=== PATIENT | female | born 1970 | race Caucasian/White ===

== ENCOUNTER 2018-05-25 21:25 | Inpatient (IN) | payer BC, OTHER, SELFPAY ==
[~2018-05-25] VITALS: Ht 165.1 cm; Wt 75.8 kg
[2018-05-25 21:25] VITALS: BP 125/63
[2018-05-25] MEDS ORDERED: SOLU-MEDROL IV STA (21:35)
[2018-05-25] MEDS ORDERED: MAGNESIUM SULFATE 50 ML IV STA (21:37)
[2018-05-25 21:58] LABS: BASOPHIL # 0.1 10^3/uL (0.0-0.1); BASOPHIL % 0.4 % (0.0-0.2); EOSINOPHIL # 0.2 10^3/uL (0.0-0.2); EOSINOPHIL % 1.4 % (0.0-5.0); HEMOGLOBIN 15.2 g/dL (12.0-15.0); LYMPHOCYTES # 7.6 10^3/uL (1.0-4.8); LYMPHOCYTES % 46.6 % (24.0-44.0); MEAN CELL HGB 31.6 pg (26-34); MEAN CELL HGB CONCENTRATION 35.2 g/dL (33-37); MEAN CORP VOLUME 89.8 fL (78-100); MEAN PLATELET VOLUME 10.1 fL (7.8-11.0); MONOCYTES # 1.2 10^3/uL (0.3-0.8); MONOCYTES % 7.1 % (5.0-12.0); NEUTROPHIL # 7.2 10^3/uL (1.8-7.7); NEUTROPHILS % 44.1 % (41.0-85.0); RED CELL DISTRIBUTION WIDTH 14.3 % (11.5-14.5); WHITE BLOOD CELL 16.3 10^3/uL (4.5-11.0)
[2018-05-25] MEDS ORDERED: DUONEB 0.5 MG-3 MG/3 ML SOLN IH ONE (22:01)
[2018-05-25] MEDS ORDERED: XOPENEX IH ONE (22:01)
[2018-05-25] MEDS ORDERED: DUONEB 0.5 MG-3 MG/3 ML SOLN IH STA (22:05)
[2018-05-25] MEDS ORDERED: XOPENEX IH STA (22:05)
[2018-05-25 22:06] VITALS: BP 129/78
--- NOTE | 2018-05-25 22:06 | DIREP ---
PROCEDURE:CHEST 1 VIEW COMPARISON:[facility], CR, XRAY CHEST 2 VWS, 12/12/2017, 03:11 PM. INDICATIONS:SOB FINDINGS: LUNGS/PLEURA:No significant pulmonary parenchymal abnormalities. No effusions. VASCULATURE:Normal. Unremarkable pulmonary vasculature. CARDIAC:Normal. No cardiac silhouette abnormality or cardiomegaly. MEDIASTINUM:Normal. No visible mass or adenopathy. BONES:Normal. No fracture or visible bony lesion. OTHER:Negative. CONCLUSION:Normal, no change from the prior exam. Dictated by: Rip Espinosa M.D. on 05/25/2018 at 10:05 PM
--- NOTE | 2018-05-25 22:11 | ER.PDOC ---
General Chief Complaint: Requesting Medical Care Stated Complaint: DYSPNEA Time seen by MD: 22:08 Source: patient Exam Limitations: no limitations History of Present Illness Initial Comments Difficulty breathing and wheezing Timing/Duration: 1 hour Severity: severe Activities at Onset: rest Prior Episodes/Possible Cause: occasional episodes Modifying Factors: improves with albuterol nebulizer Associated Symptoms: wheezing Prior symptoms/Treatment: Similar symptoms previous Allergies: Coded Allergies: sulfacetamide sodium (Verified Allergy, Intermediate, Rash, 02/26/13) aspirin (Verified Allergy, Unknown, 05/25/18) NOSE BLEEDS Past Medical History Medical History: asthma Surgical History: appendectomy, cholecystectomy, hysterectomy Review of Systems Constitutional: no symptoms reported EENTM: no symptoms reported Respiratory: see HPI Cardiovascular: no symptoms reported Gastrointestinal: no symptoms reported All Other Systems: Reviewed and Negative Physical Exam General Appearance: Severe Distress Neck: Non-Tender, Full Range of Motion, Supple, Normal Inspection Respiratory: respiratory distress, accessory muscle use, wheezing, expiration Cardiovascular: Normal Peripheral Pulses, Regular Rate, Rhythm, No Edema, No Gallop, No JVD, No Murmur Gastrointestinal: Normal Bowel Sounds, No Organomegaly, No Pulsatile Mass, Non Tender, Soft Extremities: Normal Range of Motion, Non-Tender, Normal Inspection, No Pedal Edema, No Calf Tenderness, Normal Capillary Refill Neurologic/Psychiatric: director specialty II-XII NML as Tested, No Motor/Sensory Deficits, Alert, Normal Mood/Affect, Oriented x 3 Skin: Normal Color, Warm/Dry Results/Orders Results/Orders Orders - ROSE LARSON MD Arterial Blood Gas (05/25/18 21:35) Cbc With Auto Diff (05/25/18 21:35) Comprehensive Metabolic Panel (05/25/18 21:35) Creatine Kinase (05/25/18 21:35) Probnp B-Type Metallurgist Helper (05/25/18 21:35) Troponin I (05/25/18 21:35) D-Dimer (05/25/18 21:35) Ekg-Routine (05/25/18 21:35) Xr Chest 1v (05/25/18 21:35) Methylprednisolone Sod Succ (Solu-Medrol (05/25/18 21:35) Magnesium 2 Gm/Water 50ml (Magnesium Sul (05/25/18 21:37) Ipratropium/Albuterol Sulfate (Duoneb 0. (05/25/18 22:01) Levalbuterol Hcl (Xopenex) (05/25/18 22:01) Levalbuterol Hcl (Xopenex) (05/25/18 22:05) Ipratropium/Albuterol Sulfate (Duoneb 0. (05/25/18 22:05) Blood Culture (05/25/18 22:06) Vital Signs Date Time Temp Pulse Resp B/P (MAP) Pulse Ox O2 Delivery O2 Flow Rate FiO2 05/25/18 22:12 98 28 92 05/25/18 22:00 98 28 92 05/25/18 21:40 127 42 97 Administered Medications Medications (Trade) Dose Ordered Sig/Anastasia Route PRN Reason Start Time Stop Time Status Last Admin Dose Admin Albuterol/ Ipratropium (Duoneb 0.5 Mg-3 Mg/3 ml Soln) 3 ml STAT STAT IH 05/25/18 22:05 05/25/18 22:06 DC 05/25/18 22:11 3 ML Levalbuterol HCl (Xopenex) 1.25 mg STAT STAT IH 05/25/18 22:05 05/25/18 22:06 DC 05/25/18 22:11 1.25 MG Magnesium Sulfate 50 ml @ 50 mls/hr STAT STAT IV 05/25/18 21:37 05/25/18 22:36 DC 05/25/18 21:45 50 MLS/HR Methylprednisolone Sodium Succinate (Solu-Medrol) 125 mg STAT STAT IV 05/25/18 21:35 05/25/18 21:36 DC 05/25/18 21:40 125 MG Laboratory Tests Test 05/25/18 21:46 White Blood Count 16.3 10^3/uL (4.5-11.0) H Red Blood Count 4.81 10^6/uL (4.00-5.20) Hemoglobin 15.2 g/dL (12.0-15.0) H Hematocrit 43.2 % (36.0-46.0) Mean Corpuscular Volume 89.8 fL (78-100) Mean Corpuscular Hemoglobin 31.6 pg (26-34) Mean Corpuscular Hemoglobin Concent 35.2 g/dL (33-37) Red Cell Distribution Width 14.3 % (11.5-14.5) Platelet Count 397 10^3/uL (150-400) Mean Platelet Volume 10.1 fL (7.8-11.0) Neutrophils (%) (Auto) 44.1 % (41.0-85.0) Lymphocytes (%) (Auto) 46.6 % (24.0-44.0) H Monocytes (%) (Auto) 7.1 % (5.0-12.0) Neutrophils # (Auto) 7.2 10^3/uL (1.8-7.7) Lymphocytes # (Auto) 7.6 10^3/uL (1.0-4.8) H Monocytes # (Auto) 1.2 10^3/uL (0.3-0.8) H Absolute Immature Granulocyte (auto 0.07 10^3 u/L (0-2) Eosinophils % 1.4 % (0.0-5.0) Basophils % 0.4 % (0.0-0.2) H Basophils # 0.1 10^3/uL (0.0-0.1) Eosinophil Count 0.2 10^3/uL (0.0-0.2) D-Dimer 0.93 mg/L (0.19-0.49) *H Sodium Level 136 mmol/L (132-145) Potassium Level 3.8 mmol/L (3.6-5.2) Chloride Level 101.0 mmol/L (96-109) Carbon Dioxide Level 20.3 mmol/L (20.0-32) Anion Gap 18.5 Blood Urea Nitrogen 14 mg/dL (7-18) Creatinine 1.19 mg/dL (0.59-1.40) Estimated GFR () 58.3 (>/=60) BUN/Creatinine Ratio 11.0 Glucose Level 176 mg/dL (70-110) H Calcium Level 8.8 mg/dL (8.4-10.5) Total Bilirubin 0.4 mg/dL (0.2-1.0) Aspartate Amino Transferase (AST) 47 U/L (0-35) H Alanine Aminotransferase (ALT) 44 U/L (12-78) Alkaline Phosphatase 78 U/L (50-136) Total Creatine Kinase 221 U/L (26-192) H Troponin I 0.06 ng/mL (0.00-0.05) H Pro-B-Type Natriuretic Peptide 71 pg/mL (0-125) Total Protein 7.5 g/dL (6.4-8.2) Albumin 3.8 g/dL (3.4-5.0) Globulin 3.7 Percent Immature Gran (Cell Imm) 0.40 % (0.00-0.50) EKG/XRAY/CT/US EKG: NSR XRAY: chest (No active disease) Departure Time of Disposition: 22:54 Disposition: 09 ADMITTED INPATIENT Impression: Primary Impression: Respiratory distress Additional Impression: Asthma exacerbation Condition: Stable Referrals: [facility] (PCP) PRIMARY CARE PROVIDER Comments Admitted to Dr. Banerjee Duration or Time Spent with Pa: 60 mins Critical Care Note Total Time (mins): 60 Problem Qualifiers Additional Impression: Asthma exacerbation Asthma severity: mild Asthma persistence: intermittent Qualified Codes: J45.21 - Mild intermittent asthma with (acute) exacerbation ROSE LARSON MD May 25, 2018 22:11
--- NOTE | 2018-05-25 22:20 | PCM.EKG ---
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
[2018-05-25 22:21] VITALS: BP 113/78
[2018-05-25 22:23] LABS: CALCIUM 8.8 mg/dL (8.4-10.5); CARBON DIOXIDE 20.3 mmol/L (20.0-32)
[2018-05-25] MEDS ORDERED: NS 1000ML 1,000 ML IV STA (22:55)
[2018-05-25 23:00] LABS: ABG PCO2 35.7 mmHg (35.0-45.0); ABG PH 7.277 (7.350-7.450); BE(B) -9.5 mmol/L (-2.0-2.0); HCO3act 16.3 mmol/L (22.0-26.0); pO2 100.4 mmHg (75.0-100.0)
[2018-05-25] MEDS ORDERED: D5W-1/2 NS/KCL 20MEQ 1,000 ML IV ONE (23:00)
[2018-05-25 23:07] VITALS: BP 122/54
[2018-05-25] MEDS ORDERED: NS 1000ML 1,000 ML ONE (23:22)
[2018-05-25 23:36] VITALS: BP 105/64
[2018-05-26] MEDS ORDERED: DUONEB 0.5 MG-3 MG/3 ML SOLN IH SCH
[2018-05-26] MEDS: DUONEB 0.5 MG-3 MG/3 ML SOLN IH SCH ×6 (00:26→20:30)
[2018-05-26 03:06] VITALS: BP 107/70
[2018-05-26 05:25] VITALS: BP 114/78
[2018-05-26] MEDS: SOLU-MEDROL IV SCH ×3 (05:48→18:04)
--- NOTE | 2018-05-26 07:44 | PCM.EKG ---
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
[2018-05-26 07:50] VITALS: BP_SYST 117; BP_SYST 123; BP_DIAS 50; BP_DIAS 88
[2018-05-26] MEDS: TYLENOL PO PRN ×2 (08:26→19:12)
[2018-05-26 13:50] VITALS: BP 139/93
[2018-05-26] MEDS: ATIVAN IV PRN (13:53)
--- NOTE | 2018-05-26 14:18 | PCM.HP ---
HISTORY & PHYSICAL HISTORY & PHYSICAL DATE OF ADMISSION: CHIEF COMPLAINT: 48 yo female with HTN and asthma comes in with 1 day of SOB and respiratory arrest. Family performed chest compression last night reportedly. Pt. required CPAP on admission for severe hypoxia. SIRS and metabolic acidosis present on admission. Admit for IV Corticosteroids and tele monitoring. Check CTA of chest. Continue to trend Troponins. Echo. H&P # [id number] HISTORY OF PRESENT ILLNESS: ALLERGIES: CURRENT MEDICATIONS: PAST MEDICAL HISTORY: SOCIAL HISTORY: FAMILY HISTORY: REVIEW OF SYSTEMS: PHYSICAL EXAMINATION: GENERAL: VITAL SIGNS: HEENT: NECK: LUNGS: HEART: ABDOMEN: EXTREMITIES: NEUROLOGIC: LABORATORY DATA: IMPRESSION: CARE PLAN: JOSSIE KRISHNA MD May 26, 2018 14:18
[2018-05-26] MEDS ORDERED: ROCEPHIN 1,000 MG in NS 100ML 100 ML IV SCH (14:30)
[2018-05-26] MEDS ORDERED: NS 100ML 100 ML IV ONE (14:43)
[2018-05-26] MEDS ORDERED: ROCEPHIN ONE (14:43)
--- NOTE | 2018-05-26 16:04 | DIREP ---
PROCEDURE:CT PULMONARY ANGIOGRAM TECHNIQUE:Following the intravenous administration of contrast material, axial cuts were obtained through the chest. Sagittal, coronal, and pulmonary artery MIP post-processing reconstructions are provided. Satisfactory pulmonary arterial contrast opacification was achieved. The images were viewed at lung and soft tissue settings. COMPARISON:[facility], CR, XRAY CHEST SINGLE VW, 05/25/2018, 09:51 PM. INDICATIONS:sob FINDINGS: PULMONARY ARTERIES:Patent. LUNGS:Bilateral dependent atelectasis. Mild patchy bilateral infiltrates, differential includes pneumonia, edema versus atelectasis. Mild emphysema in the apices. CARDIAC:Normal size heart and normal pulmonary vascularity. THYROID:Normal. THORACIC AORTA:Normal. MEDIASTINUM:Prominent right suprahilar lymph node measures 19 x 18 mm. PLEURA:Small bilateral pleural effusions. BONES:Normal. OTHER:No additional findings. CONCLUSION: 1. Negative for pulmonary embolism. Two. Aorta within normal limits. 3. Patchy bilateral hazy opacities, differential includes pneumonia, edema versus atelectasis. Three. Small bilateral pleural effusions and trace atelectasis. 4. Mildly enlarged right suprahilar lymph node, may be reactive. The possibility of metastasis is in the differential. Dictated by: Michael Ordoñez M.D. on 05/26/2018 at 03:57 PM
[2018-05-26] MEDS: NS 1000ML 1,000 ML IV SCH (16:25)
--- NOTE | 2018-05-26 16:27 | HPH ---
ADMIT DATE: 05/26/2018 CHIEF COMPLAINT: Shortness of breath and possible respiratory arrest. HISTORY OF PRESENT ILLNESS: This is a 48-year-old female with a past medical history significant for asthma, who presented to the Emergency Department late last night after an episode of shortness of breath and possible respiratory arrest. Apparently, the patient was at the movie theater here in [place] with her family and after the movie she started having sudden onset of shortness of breath and wheezing. The patient states she could not get air and began to panic at that time. She does not remember anything further and the family states that her breathing became much more shallow and at one point they could not tell if she was breathing at all. At that time, her daughter also checked her pulse and states her pulse was very weak and her daughter started CPR at that time. Her daughter has had a first aid course and states she did 3 courses of CPR and rescue breathing and when EMS arrived, the patient was breathing a little bit, but that EMS also performed the Heimlich maneuver. They state that EMS did not perform any other type of resuscitative efforts. The patient was stable in the Emergency Department, although she was having some continued difficulty with breathing. She was placed on CPAP intermittently for her oxygen. She states she feels much better today and is breathing easier. She is still not back to baseline and is still short of breath without the oxygen, but states that it is much improved from last night and she is no longer needing CPAP. PAST MEDICAL HISTORY 1. Asthma. 2. Hypertension. 3. Osteoarthritis. 4. Generalized anxiety. MEDICATIONS: See admit medication reconciliation form. ALLERGIES: ASPIRIN and SULFA. PAST SURGICAL HISTORY: 1. Appendectomy. 2. Cholecystectomy. 3. Hysterectomy. FAMILY HISTORY: Reviewed. REVIEW OF SYSTEMS: GENERAL: Overall positive for weakness and fatigue over the last 24 hours. CARDIAC: She is having some chest wall pain today, likely from CPR. Otherwise, has not had chest pain, orthopnea or PND. RESPIRATORY: Positive for shortness of breath, cough and congestion as above. Symptoms only started over the last 24 hours, however. GASTROINTESTINAL: No nausea, vomiting, diarrhea or constipation. No history of hepatitis. GENITOURINARY: Denies dysuria, frequency, hematuria or nocturia. HEMATOLOGIC: No easy bleeding or bruising. ENDOCRINE: No recent weight loss or weight gain. No temperature intolerance. NEUROLOGIC: Denies headache, paresthesias or dizziness. MUSCULOSKELETAL: Recent sprain of the right ankle. PSYCHIATRIC: Positive for significant anxiety. Denies depression. DERMATOLOGIC: Denies rashes or skin lesions. PHYSICAL EXAMINATION: VITAL SIGNS: Temperature 96.1, pulse 122, respirations 40, blood pressure 125/63, oxygen saturation 96% on CPAP. GENERAL: This is a well-appearing female, in no acute distress. She is mildly tremulous from anxiety and breathing treatments. HEENT: Atraumatic, normocephalic. Sclerae are clear and anicteric. Oral mucosa is moist. NECK: Soft, supple, normal range of motion. No bruits, goiter, mass or adenopathy. There is no JVD. LUNGS: Decreased breath sounds bilaterally with mild wheezing throughout both lung lew. HEART: Regular rate and rhythm without murmurs, S3 or S4. ABDOMEN: Soft, nontender, nondistended. Positive bowel sounds. No masses felt. EXTREMITIES: Warm and well perfused without evidence of edema, cyanosis or clubbing. NEUROLOGIC: Cranial nerves 2-12 are grossly intact and symmetric. SKIN: Intact. LABORATORY DATA: WBC 16.3, hemoglobin 15.2, platelets 397. The pH of 7.27, pCO2 of 35.7, pO2 of 100.4, bicarbonate 16.3, lactate 4.3. Sodium 136, potassium 3.8, chloride 101, CO2 of 20.3, BUN 14, creatinine 1.19, glucose 176, calcium 8.8, AST 47, ALT 44, total CK 221. Troponin I of 0.06. Chest x-ray --"normal, no change from the prior exam." IMPRESSION: 1. Shortness of breath. 2. Possible respiratory arrest. 3. Asthma exacerbation. 4. Systemic inflammatory response syndrome. 5. Lactic metabolic acidosis. 6. Leukocytosis. 7. Elevated troponin. 8. Generalized anxiety. 9. Chronic tobacco use. 10. Chronic alcohol use. PLAN: 1. The patient is admitted to [facility], where we will continue to closely monitor vital signs and oxygen levels. 2. The patient will be on IV corticosteroids for reactive airway disease. We will also place on empiric antibiotics over the next 24 hours for SIRS. 3. The patient did have an elevated D-dimer on admission, but I do not see any record of a CTA being done in the Emergency Department. She does have a history of this ankle fracture and DVT is possible. She does have tachycardia and hypoxia, thus we will order a CTA of the chest since one has not been done. 4. Elevated troponin could very likely be from chest compressions that were done by family last night. The patient has no other known cardiac history. Her EKG looks good without any signs of significant abnormalities. I am going to check her troponin until it starts to trend down and we will also order an echocardiogram. Consider Cardiology consult. 5. We will give lorazepam for anxiety. 6. Nicotine patch for nicotine dependence. 7. I told the patient to contact me if she has any signs or symptoms of tremor because alcohol withdrawal is still a possibility. 8. Continue DuoNeb treatments q.i.d. Ish Banerjee MD DR: THANG/savannah JOB# [id number]
[2018-05-26 16:35] VITALS: BP 138/84
[2018-05-26 19:33] VITALS: BP 126/85
[2018-05-26] MEDS ORDERED: MOTRIN PO ONE (21:30)
[2018-05-26] MEDS ORDERED: MOTRIN ONE (21:31)
[2018-05-27] VITALS (7 sets, daily range): BP systolic 115–131; BP diastolic 60–78
[2018-05-27] MEDS: SOLU-MEDROL IV SCH ×4 (00:28→18:00)
[2018-05-27] MEDS: DUONEB 0.5 MG-3 MG/3 ML SOLN IH SCH ×6 (00:45→20:42)
[2018-05-27] MEDS: ATIVAN IV PRN (01:33)
[2018-05-27] MEDS: NS 1000ML 1,000 ML IV SCH ×2 (05:34→20:03)
[2018-05-27 05:50] LABS: HEMOGLOBIN 13.3 g/dL (12.0-15.0); MEAN CELL HGB 31.4 pg (26-34); MEAN CELL HGB CONCENTRATION 34.3 g/dL (33-37); MEAN CORP VOLUME 91.5 fL (78-100); RED CELL DISTRIBUTION WIDTH 14.9 % (11.5-14.5); WHITE BLOOD CELL 18.9 10^3/uL (4.5-11.0)
[2018-05-27 06:18] LABS: CALCIUM 8.5 mg/dL (8.4-10.5); CARBON DIOXIDE 23.6 mmol/L (20.0-32)
[2018-05-27] MEDS: PROTONIX PO SCH (09:23)
[2018-05-27] MEDS: TYLENOL PO PRN ×3 (09:33→23:32)
--- NOTE | 2018-05-27 11:18 | PCM.EKG ---
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
--- NOTE | 2018-05-27 13:03 | DIREP ---
PROCEDURE:CHEST 1 VIEW COMPARISON:[facility], CT, CTA CHEST, 05/26/2018, 03:33 PM. [facility], CR, XRAY CHEST SINGLE VW, 05/25/2018, 09:51 PM. [facility], CR, XRAY CHEST 2 VWS, 12/12/2017, 03:11 PM. INDICATIONS:Eval for pneumonia vs atelectasis. FINDINGS: LUNGS/PLEURA:Small left pleural effusion. Subtle patchy opacities bilaterally. VASCULATURE:Normal. Unremarkable pulmonary vasculature. CARDIAC:Normal. No cardiac silhouette abnormality or cardiomegaly. MEDIASTINUM:Normal. No visible mass or adenopathy. BONES:Normal. No fracture or visible bony lesion. OTHER:EKG leads overlie the chest. CONCLUSION:Subtle patchy bilateral opacities and small left effusion. Pneumonia is favored. Dictated by: Michael Ordoñez M.D. on 05/27/2018 at 01:01 PM
--- NOTE | 2018-05-27 16:46 | PRM.PN ---
Subjective Subjective Date: May 27, 2018 Time: 16:39 Subjective Feeling a little better. SOB improving. Denies any chest pain. Continues to have significant anxiety. Patient History: Diabetes mellitus 32 MOTHER Hypertension 32 MOTHER 33 FATHER G8 SISTER G8 SISTER VTE VTE Risk Total Score: 1 VTE Risk Score VTE Risk: Score 0-1 = Low Risk (Aggressive mobilization; early ambulation; no VTE prophylaxis required) Score 2: Moderate Risk (Intermittent/Pneumatic Compression Device OR Lovenox/Heparin/Coumadin) Score 3-4: High Risk (Intermittent/Pneumatic Compression Device AND Lovenox/Heparin/Coumadin) Score > or =5: Highest Risk (Intermittent/Pneumatic Compression Device AND Lovenox/Heparin/Coumadin) Review of Systems Constitutional: Weakness; No: Fever, Chills, Sweats, Malaise, Other Respiratory: Shortness of breath, SOB with excertion; No: Cough, Dry, Wheezing , Hemoptysis, Pleuritic Pain, Sputum, Wheezing, Other Cardiovascular: No: Chest Pain, Palpitations, Orthopnea, Paroxysmal Noc. Dyspnea, Edema, Lt Headedness, Other Gastrointestinal: No: Nausea, Vomiting, Abdominal Pain, Diarrhea, Constipation , Melena, Hematochezia, Other Genitourinary: No Dysuria, No Frequency, No Incontinence, No Hematuria, No Retention, No Other Musculoskeletal: No: other, neck pain, shoulder pain, arm pain, back pain, hand pain, leg pain, foot pain Neurological: Weakness; No: Numbness, Incoordination, Change in speech, Confusion, Seizures, Other Allergies: Coded Allergies: sulfacetamide sodium (Verified Allergy, Intermediate, Rash, 02/26/13) aspirin (Verified Allergy, Unknown, 05/25/18) NOSE BLEEDS Objective Vitals and I/O Vital Sign - Last 24 Hours 05/26/18 05/26/18 05/26/18 05/26/18 16:47 16:48 18:15 19:33 Temp 98.0 98.0 Pulse 85 87 85 95 Resp 18 18 18 20 B/P (MAP) 126/85 (99) Pulse Ox 98 98 98 93 O2 Delivery Nasal Cannula Nasal Canula O2 Flow Rate 2.00 2.50 FiO2 28 05/26/18 05/26/18 05/26/18 05/27/18 20:31 20:39 20:59 00:45 Pulse 84 95 80 Resp 18 20 18 Pulse Ox 97 98 93 O2 Delivery Nasal Cannula O2 Flow Rate 2.50 05/27/18 05/27/18 05/27/18 05/27/18 00:48 01:37 04:11 05:02 Temp 98.3 98.0 98.3 98.0 Pulse 84 84 73 82 Resp 18 17 17 16 B/P (MAP) 115/61 (79) 120/75 (90) Pulse Ox 94 92 96 94 O2 Delivery Nasal Canula Nasal Canula O2 Flow Rate 2.50 2.50 05/27/18 05/27/18 05/27/18 05/27/18 05:09 07:25 07:25 08:27 Temp 98.3 98.3 Pulse 81 80 78 Resp 16 17 16 B/P (MAP) 116/70 (85) Pulse Ox 97 97 98 O2 Delivery Nasal Canula Nasal Cannula O2 Flow Rate 1.00 1.00 05/27/18 05/27/18 05/27/18 05/27/18 08:27 08:31 11:50 12:44 Temp 98.1 98.1 Pulse 78 84 66 85 Resp 16 16 18 18 B/P (MAP) 131/60 (83) Pulse Ox 98 98 97 98 O2 Delivery Nasal Cannula Nasal Canula O2 Flow Rate 2.00 1.00 FiO2 24 05/27/18 05/27/18 05/27/18 05/27/18 12:51 16:24 16:27 16:32 Pulse 83 83 83 81 Resp 16 16 16 16 Pulse Ox 98 96 96 97 O2 Delivery Nasal Cannula O2 Flow Rate 2.00 FiO2 28 Intake and Output 05/26/18 05/26/18 05/27/18 15:00 23:00 07:00 Intake Total 400 ml 250 ml 420 ml Output Total 900 ml 400 ml 1150 ml Balance -500 ml -150 ml -730 ml General: Alert, Oriented X3, Cooperative, No acute distress HEENT: Atraumatic, PERRLA Neck: Supple, No JVD Lungs: Clear to auscultation Heart: Regular rate, Normal S1, Normal S2, No murmurs Abdomen: Normal bowel sounds, Soft, No tenderness, No masses Extremities: No clubbing, No cyanosis, No edema, Normal pulses, No tenderness/ swelling Neuro: Normal gait, Normal speech, Strength at 5/5 X4 ext, Normal tone, Sensation intact Psych/Mental Status: Mental status NL, Mood NL All Results(Lab/Rad) Laboratory Tests Test 05/26/18 17:10 05/27/18 05:09 Total Creatine Kinase 411 U/L Troponin I 1.59 ng/mL White Blood Count 18.9 10^3/uL Red Blood Count 4.24 10^6/uL Hemoglobin 13.3 g/dL Hematocrit 38.8 % Mean Corpuscular Volume 91.5 fL Mean Corpuscular Hemoglobin 31.4 pg Mean Corpuscular Hemoglobin Concent 34.3 g/dL Red Cell Distribution Width 14.9 % Platelet Count 297 10^3/uL Mean Platelet Volume 11.0 fL Sodium Level 143 mmol/L Potassium Level 4.2 mmol/L Chloride Level 109.0 mmol/L Carbon Dioxide Level 23.6 mmol/L Anion Gap 14.6 Blood Urea Nitrogen 9 mg/dL Creatinine 0.84 mg/dL Estimated GFR () 87.2 BUN/Creatinine Ratio 10.0 Glucose Level 151 mg/dL Calcium Level 8.5 mg/dL Magnesium Level 2.3 mg/dL Total Bilirubin 0.2 mg/dL Aspartate Amino Transf (AST/SGOT) 26 U/L Alanine Aminotransferase (ALT/SGPT) 24 U/L Alkaline Phosphatase 61 U/L Total Protein 6.4 g/dL Albumin 3.4 g/dL Globulin 3.0 Thyroid Stimulating Hormone (TSH) 0.313 mIU/mL Current Medications Medications (Trade) Dose Ordered Sig/Anastasia Route PRN Reason Start Time Stop Time Status Last Admin Dose Admin Methylprednisolone Sodium Succinate (Solu-Medrol) 125 mg STAT STAT IV 05/25/18 21:35 05/25/18 21:36 DC 05/25/18 21:40 Magnesium Sulfate 50 ml @ 50 mls/hr STAT STAT IV 05/25/18 21:37 05/25/18 22:36 DC 05/25/18 21:45 Albuterol/ Ipratropium (Duoneb 0.5 Mg-3 Mg/3 ml Soln) 3 ml STK-MED ONCE IH 05/25/18 22:01 05/25/18 22:03 DC Levalbuterol HCl (Xopenex) 1.25 mg STK-MED ONCE IH 05/25/18 22:01 05/25/18 22:03 DC Levalbuterol HCl (Xopenex) 1.25 mg STAT STAT IH 05/25/18 22:05 05/25/18 22:06 DC 05/25/18 22:11 Albuterol/ Ipratropium (Duoneb 0.5 Mg-3 Mg/3 ml Soln) 3 ml STAT STAT IH 05/25/18 22:05 05/25/18 22:06 DC 05/25/18 22:11 Sodium Chloride 1,000 ml @ 1,200 mls/hr Q50M STAT IV 05/25/18 22:55 05/25/18 23:44 DC 05/25/18 21:45 Methylprednisolone Sodium Succinate (Solu-Medrol) 60 mg Q8HR IV 05/26/18 06:00 05/26/18 14:11 DC 05/26/18 13:53 Albuterol/ Ipratropium (Duoneb 0.5 Mg-3 Mg/3 ml Soln) 3 ml Q4HR IH 05/26/18 00:00 05/26/18 00:00 DC Potassium Chloride/Dextrose/ Sod Cl 1,000 ml @ 100 mls/hr Q10H ONCE IV 05/25/18 23:00 05/26/18 08:59 DC 05/25/18 23:00 Albuterol/ Ipratropium (Duoneb 0.5 Mg-3 Mg/3 ml Soln) 3 ml RTQ4 IH 05/26/18 01:00 06/25/18 00:00 05/27/18 16:24 Sodium Chloride 1,000 ml @ ud STK-MED ONCE .ROUTE 05/25/18 23:22 05/25/18 23:25 DC Acetaminophen (Tylenol) 1,000 mg Q6HR PRN PO PAIN 1 - 3 05/26/18 08:30 06/25/18 08:29 05/27/18 16:34 Lorazepam (Ativan) 1 mg Q6 PRN IV ANXIETY 05/26/18 08:30 06/25/18 08:29 05/27/18 01:33 Methylprednisolone Sodium Succinate (Solu-Medrol) 80 mg Q6 IV 05/26/18 18:00 06/25/18 17:59 05/27/18 11:56 Ceftriaxone Sodium 1000 mg/ Sodium Chloride 100 ml @ 100 mls/hr Q24HRS IV 05/26/18 14:30 05/26/18 15:14 DC 05/26/18 14:48 Pantoprazole Sodium (Protonix) 40 mg DAILY PO 05/27/18 09:00 06/26/18 08:59 05/27/18 09:23 Ceftriaxone Sodium (Rocephin) 1,000 mg STK-MED ONCE .ROUTE 05/26/18 14:43 05/26/18 14:44 DC Sodium Chloride 100 ml @ ud STK-MED ONCE IV 05/26/18 14:43 05/26/18 14:44 DC Sodium Chloride 1,000 ml @ 70 mls/hr [id number] IV 05/26/18 16:00 06/25/18 15:59 05/27/18 05:34 Ibuprofen (Motrin) 600 mg OT ONCE PO 05/26/18 21:30 05/26/18 21:32 DC 05/26/18 21:34 Ibuprofen (Motrin) 200 mg STK-MED ONCE .ROUTE 05/26/18 21:31 05/26/18 21:32 DC Course Sepsis Screening Results: Posi: NEGATIVE Sepsis Qualifier/Stage: NO DEFINITE RISK Duration or Total Time Spent w: 60 mins Vitals & review Data Vital Sign - Last 24 Hours 05/26/18 05/26/18 05/26/18 05/26/18 16:47 16:48 18:15 19:33 Temp 98.0 98.0 Pulse 85 87 85 95 Resp 18 18 18 20 B/P (MAP) 126/85 (99) Pulse Ox 98 98 98 93 O2 Delivery Nasal Cannula Nasal Canula O2 Flow Rate 2.00 2.50 FiO2 28 05/26/18 05/26/18 05/26/18 05/27/18 20:31 20:39 20:59 00:45 Pulse 84 95 80 Resp 18 20 18 Pulse Ox 97 98 93 O2 Delivery Nasal Cannula O2 Flow Rate 2.50 05/27/18 05/27/18 05/27/18 05/27/18 00:48 01:37 04:11 05:02 Temp 98.3 98.0 98.3 98.0 Pulse 84 84 73 82 Resp 18 17 17 16 B/P (MAP) 115/61 (79) 120/75 (90) Pulse Ox 94 92 96 94 O2 Delivery Nasal Canula Nasal Canula O2 Flow Rate 2.50 2.50 05/27/18 05/27/18 05/27/18 05/27/18 05:09 07:25 07:25 08:27 Temp 98.3 98.3 Pulse 81 80 78 Resp 16 17 16 B/P (MAP) 116/70 (85) Pulse Ox 97 97 98 O2 Delivery Nasal Canula Nasal Cannula O2 Flow Rate 1.00 1.00 05/27/18 05/27/18 05/27/18 05/27/18 08:27 08:31 11:50 12:44 Temp 98.1 98.1 Pulse 78 84 66 85 Resp 16 16 18 18 B/P (MAP) 131/60 (83) Pulse Ox 98 98 97 98 O2 Delivery Nasal Cannula Nasal Canula O2 Flow Rate 2.00 1.00 FiO2 24 05/27/18 05/27/18 05/27/18 05/27/18 12:51 16:24 16:27 16:32 Pulse 83 83 83 81 Resp 16 16 16 16 Pulse Ox 98 96 96 97 O2 Delivery Nasal Cannula O2 Flow Rate 2.00 FiO2 28 Intake and Output 05/26/18 05/26/18 05/27/18 15:00 23:00 07:00 Intake Total 400 ml 250 ml 420 ml Output Total 900 ml 400 ml 1150 ml Balance -500 ml -150 ml -730 ml Laboratory Tests Test 05/25/18 21:45 05/25/18 21:46 05/26/18 02:39 05/26/18 05:52 Blood Gas Sample Site RT BRACIAL ARTERY VBG Blood Gas pH 7.277 Blood Gas PCO2 35.7 mmHg Blood Gas PO2 100.4 mmHg Blood Gas HCO3 16.3 mmol/L Blood Gas Base Excess -9.5 mmol/L Satish Test N/A N/A Arterial Blood Oxygen Saturation 96.4 % Deoxyhemoglobin 3.3 % Carboxyhemoglobin 7.1 % Methemoglobin 0.1 % Total Hemoglobin 15.7 % Total Oxygen Concentration 19.8 % Lactic Acid (Blood Gas) 4.3 MMOL/L 1.4 MMOL/L FiO2 100 % Bicarbonate 17.4 mmol/L White Blood Count 16.3 10^3/uL Red Blood Count 4.81 10^6/uL Hemoglobin 15.2 g/dL Hematocrit 43.2 % Mean Corpuscular Volume 89.8 fL Mean Corpuscular Hemoglobin 31.6 pg Mean Corpuscular Hemoglobin Concent 35.2 g/dL Red Cell Distribution Width 14.3 % Platelet Count 397 10^3/uL Mean Platelet Volume 10.1 fL Neutrophils (%) (Auto) 44.1 % Lymphocytes (%) (Auto) 46.6 % Monocytes (%) (Auto) 7.1 % Neutrophils # (Auto) 7.2 10^3/uL Lymphocytes # (Auto) 7.6 10^3/uL Monocytes # (Auto) 1.2 10^3/uL Absolute Immature Granulocyte (auto 0.07 10^3 u/L Eosinophils % 1.4 % Basophils % 0.4 % Basophils # 0.1 10^3/uL Eosinophil Count 0.2 10^3/uL D-Dimer 0.93 mg/L Sodium Level 136 mmol/L Potassium Level 3.8 mmol/L Chloride Level 101.0 mmol/L Carbon Dioxide Level 20.3 mmol/L Anion Gap 18.5 Blood Urea Nitrogen 14 mg/dL Creatinine 1.19 mg/dL Estimated GFR () 58.3 BUN/Creatinine Ratio 11.0 Glucose Level 176 mg/dL Calcium Level 8.8 mg/dL Total Bilirubin 0.4 mg/dL Aspartate Amino Transf (AST/SGOT) 47 U/L Alanine Aminotransferase (ALT/SGPT) 44 U/L Alkaline Phosphatase 78 U/L Total Creatine Kinase 221 U/L Troponin I 0.06 ng/mL 1.65 ng/mL Pro-B-Type Natriuretic Peptide 71 pg/mL Total Protein 7.5 g/dL Albumin 3.8 g/dL Globulin 3.7 Percent Immature Gran (Cell Imm) 0.40 % Test 05/26/18 11:35 05/26/18 17:10 05/27/18 05:09 Troponin I 2.02 ng/mL 1.59 ng/mL Total Creatine Kinase 411 U/L White Blood Count 18.9 10^3/uL Red Blood Count 4.24 10^6/uL Hemoglobin 13.3 g/dL Hematocrit 38.8 % Mean Corpuscular Volume 91.5 fL Mean Corpuscular Hemoglobin 31.4 pg Mean Corpuscular Hemoglobin Concent 34.3 g/dL Red Cell Distribution Width 14.9 % Platelet Count 297 10^3/uL Mean Platelet Volume 11.0 fL Sodium Level 143 mmol/L Potassium Level 4.2 mmol/L Chloride Level 109.0 mmol/L Carbon Dioxide Level 23.6 mmol/L Anion Gap 14.6 Blood Urea Nitrogen 9 mg/dL Creatinine 0.84 mg/dL Estimated GFR () 87.2 BUN/Creatinine Ratio 10.0 Glucose Level 151 mg/dL Calcium Level 8.5 mg/dL Magnesium Level 2.3 mg/dL Total Bilirubin 0.2 mg/dL Aspartate Amino Transf (AST/SGOT) 26 U/L Alanine Aminotransferase (ALT/SGPT) 24 U/L Alkaline Phosphatase 61 U/L Total Protein 6.4 g/dL Albumin 3.4 g/dL Globulin 3.0 Thyroid Stimulating Hormone (TSH) 0.313 mIU/mL Current Medications Medications (Trade) Dose Ordered Sig/Anastasia PRN Reason Start Time Stop Time Status Last Admin Acetaminophen (Tylenol) 1,000 mg Q6HR PRN PAIN 1 - 3 05/26/18 08:30 06/25/18 08:29 05/27/18 16:34 Albuterol/ Ipratropium (Duoneb 0.5 Mg-3 Mg/3 ml Soln) 3 ml RTQ4 05/26/18 01:00 06/25/18 00:00 05/27/18 16:24 Lorazepam (Ativan) 1 mg Q6 PRN ANXIETY 05/26/18 08:30 06/25/18 08:29 05/27/18 01:33 Methylprednisolone Sodium Succinate (Solu-Medrol) 80 mg Q6 05/26/18 18:00 06/25/18 17:59 05/27/18 11:56 Pantoprazole Sodium (Protonix) 40 mg DAILY 05/27/18 09:00 06/26/18 08:59 05/27/18 09:23 Sodium Chloride 1,000 ml @ 70 mls/hr [id number] 05/26/18 16:00 06/25/18 15:59 05/27/18 05:34 Sepsis Infection Criteria Pres: None LEVEL 2-SIRS (LIST ALL THAT AP: [id number] Cardiovascular Evidence: Not Assessed or None Hematologic Evidence: None/Not assessed Hepatic Evidence: None/Not assessed Metabolic Evidence: Lactate 2mmol> rpt in 2hr Neurological Evidence: None/Not assessed Respiratory Evidence: None/Not assessed Renal Evidence: None/Not assessed O2 Sat by Pulse Oximetry: 97 Oxygen Flow Rate: 2.00 Assessment/Plan Assessment/Plan Assessment/Plan 1.) Resp Arrest - Secondary to #2. Much improved. Continue treatment as outlined below. 2.) Asthma Exacerbation - Improved overnight. - Continue corticosteroids. - Emperic abx. - Duonebs. 3.) Elevated Troponin - May be secondary to chest compressions, however also had a WMA on Echo. - May need LHC while inpt. - Will consult Dr. Lion in AM. - Continue MARIA G, Beta Zahra and ASA. 4.) Metabolic Acidosis - Much improved. - Continue supportive management. 5.) Nicotine Dependence - Counseled on cessation. - Outpt Wellbutrin. JOSSIE KRISHNA MD May 27, 2018 16:46
[2018-05-27] MEDS: PREDNISONE PO SCH (17:00)
[2018-05-27] MEDS: ZITHROMAX PO SCH (17:00)
[2018-05-27] MEDS: ATIVAN PO PRN (17:16)
[2018-05-27] MEDS ORDERED: LIPITOR PO SCH (21:00)
[2018-05-27] MEDS: LOPRESSER PO SCH (21:14)
--- NOTE | 2018-05-27 22:58 | ECHO ---
DATE OF SERVICE: 05/26/2018 INDICATION: A 48-year-old female, elevated troponin, asthma. Assess LV function. FINDINGS: Mitral valve shows normal motion, trivial mitral regurgitation, normal aorta, normal ventricular opening, mild tricuspid regurgitation, 2.1 velocity. Right ventricular systolic pressure 27 mm. Right ventricle is normal. Right atrium is top normal size. Left atrium mildly enlarged to 4.6 cm, left ventricle is normal in size around 4.81 cm, end-diastolic dimension is 3.49 cm with and systolic dysfunction with fairly good ejection fraction on M-MODE is 53%; on 2D, mildly decreased to 45%-47% and IVC is normal. Hence mildly decreased LV systolic function with normal LV size. Septum appears to be hypokinetic compared to the posterior flores, so there is underlying coronary artery disease and the ejection fraction is 45%, probably cardiac catheterization may be advisable. Jillhand MD Mello DR: JEFF/savannah JOB# [id number]
[2018-05-28] MEDS: DUONEB 0.5 MG-3 MG/3 ML SOLN IH SCH ×4 (01:12→12:23)
[2018-05-28] MEDS: ATIVAN PO PRN (01:58)
[2018-05-28 03:41] VITALS: BP 120/65
[2018-05-28 05:28] LABS: HEMOGLOBIN 12.7 g/dL (12.0-15.0); MEAN CELL HGB 31.4 pg (26-34); MEAN CELL HGB CONCENTRATION 33.5 g/dL (33-37); MEAN CORP VOLUME 93.8 fL (78-100); MEAN PLATELET VOLUME 10.6 fL (7.8-11.0); RED CELL DISTRIBUTION WIDTH 15.3 % (11.5-14.5); WHITE BLOOD CELL 16.6 10^3/uL (4.5-11.0)
[2018-05-28 05:48] LABS: CALCIUM 8.4 mg/dL (8.4-10.5); CARBON DIOXIDE 24.3 mmol/L (20.0-32)
[2018-05-28] MEDS: NS 1000ML 1,000 ML IV SCH (06:51)
[2018-05-28 08:10] VITALS: BP 154/89
[2018-05-28] MEDS: LOPRESSER PO SCH (08:44)
[2018-05-28] MEDS: PREDNISONE PO SCH (08:52)
[2018-05-28] MEDS: ZITHROMAX PO SCH (08:52)
[2018-05-28] MEDS: PROTONIX PO SCH (08:53)
--- NOTE | 2018-05-28 08:54 | PRM.PN ---
Subjective Subjective Date: May 28, 2018 Time: 08:49 Subjective Feeling a little better. SOB continues to improve. Denies any chest pain. Continues to have significant anxiety. No overnight events. Patient History: Diabetes mellitus 32 MOTHER Hypertension 32 MOTHER 33 FATHER G8 SISTER G8 SISTER VTE VTE Risk Total Score: 1 VTE Risk Score VTE Risk: Score 0-1 = Low Risk (Aggressive mobilization; early ambulation; no VTE prophylaxis required) Score 2: Moderate Risk (Intermittent/Pneumatic Compression Device OR Lovenox/Heparin/Coumadin) Score 3-4: High Risk (Intermittent/Pneumatic Compression Device AND Lovenox/Heparin/Coumadin) Score > or =5: Highest Risk (Intermittent/Pneumatic Compression Device AND Lovenox/Heparin/Coumadin) Review of Systems Constitutional: Weakness; No: Fever, Chills, Sweats, Malaise, Other Respiratory: Shortness of breath, SOB with excertion; No: Cough, Dry, Wheezing , Hemoptysis, Pleuritic Pain, Sputum, Wheezing, Other Cardiovascular: No: Chest Pain, Palpitations, Orthopnea, Paroxysmal Noc. Dyspnea, Edema, Lt Headedness, Other Gastrointestinal: No: Nausea, Vomiting, Abdominal Pain, Diarrhea, Constipation , Melena, Hematochezia, Other Genitourinary: No Dysuria, No Frequency, No Incontinence, No Hematuria, No Retention, No Other Musculoskeletal: No: other, neck pain, shoulder pain, arm pain, back pain, hand pain, leg pain, foot pain Neurological: Weakness; No: Numbness, Incoordination, Change in speech, Confusion, Seizures, Other Allergies: Coded Allergies: sulfacetamide sodium (Verified Allergy, Intermediate, Rash, 02/26/13) aspirin (Verified Allergy, Unknown, 05/25/18) NOSE BLEEDS Objective Vitals and I/O Vital Sign - Last 24 Hours 05/26/18 05/26/18 05/26/18 05/26/18 16:47 16:48 18:15 19:33 Temp 98.0 98.0 Pulse 85 87 85 95 Resp 18 18 18 20 B/P (MAP) 126/85 (99) Pulse Ox 98 98 98 93 O2 Delivery Nasal Cannula Nasal Canula O2 Flow Rate 2.00 2.50 FiO2 28 05/26/18 05/26/18 05/26/18 05/27/18 20:31 20:39 20:59 00:45 Pulse 84 95 80 Resp 18 20 18 Pulse Ox 97 98 93 O2 Delivery Nasal Cannula O2 Flow Rate 2.50 05/27/18 05/27/18 05/27/18 05/27/18 00:48 01:37 04:11 05:02 Temp 98.3 98.0 98.3 98.0 Pulse 84 84 73 82 Resp 18 17 17 16 B/P (MAP) 115/61 (79) 120/75 (90) Pulse Ox 94 92 96 94 O2 Delivery Nasal Canula Nasal Canula O2 Flow Rate 2.50 2.50 05/27/18 05/27/18 05/27/18 05/27/18 05:09 07:25 07:25 08:27 Temp 98.3 98.3 Pulse 81 80 78 Resp 16 17 16 B/P (MAP) 116/70 (85) Pulse Ox 97 97 98 O2 Delivery Nasal Canula Nasal Cannula O2 Flow Rate 1.00 1.00 05/27/18 05/27/18 05/27/18 05/27/18 08:27 08:31 11:50 12:44 Temp 98.1 98.1 Pulse 78 84 66 85 Resp 16 16 18 18 B/P (MAP) 131/60 (83) Pulse Ox 98 98 97 98 O2 Delivery Nasal Cannula Nasal Canula O2 Flow Rate 2.00 1.00 FiO2 24 05/27/18 05/27/18 05/27/18 05/27/18 12:51 16:24 16:27 16:32 Pulse 83 83 83 81 Resp 16 16 16 16 Pulse Ox 98 96 96 97 O2 Delivery Nasal Cannula O2 Flow Rate 2.00 FiO2 28 Intake and Output 05/26/18 05/26/18 05/27/18 15:00 23:00 07:00 Intake Total 400 ml 250 ml 420 ml Output Total 900 ml 400 ml 1150 ml Balance -500 ml -150 ml -730 ml General: Alert, Oriented X3, Cooperative, No acute distress HEENT: Atraumatic, PERRLA Neck: Supple, No JVD Lungs: Clear to auscultation Heart: Regular rate, Normal S1, Normal S2, No murmurs Abdomen: Normal bowel sounds, Soft, No tenderness, No masses Extremities: No clubbing, No cyanosis, No edema, Normal pulses, No tenderness/ swelling Neuro: Normal gait, Normal speech, Strength at 5/5 X4 ext, Normal tone, Sensation intact Psych/Mental Status: Mental status NL, Mood NL All Results(Lab/Rad) Laboratory Tests Test 05/26/18 17:10 05/27/18 05:09 Total Creatine Kinase 411 U/L Troponin I 1.59 ng/mL White Blood Count 18.9 10^3/uL Red Blood Count 4.24 10^6/uL Hemoglobin 13.3 g/dL Hematocrit 38.8 % Mean Corpuscular Volume 91.5 fL Mean Corpuscular Hemoglobin 31.4 pg Mean Corpuscular Hemoglobin Concent 34.3 g/dL Red Cell Distribution Width 14.9 % Platelet Count 297 10^3/uL Mean Platelet Volume 11.0 fL Sodium Level 143 mmol/L Potassium Level 4.2 mmol/L Chloride Level 109.0 mmol/L Carbon Dioxide Level 23.6 mmol/L Anion Gap 14.6 Blood Urea Nitrogen 9 mg/dL Creatinine 0.84 mg/dL Estimated GFR () 87.2 BUN/Creatinine Ratio 10.0 Glucose Level 151 mg/dL Calcium Level 8.5 mg/dL Magnesium Level 2.3 mg/dL Total Bilirubin 0.2 mg/dL Aspartate Amino Transf (AST/SGOT) 26 U/L Alanine Aminotransferase (ALT/SGPT) 24 U/L Alkaline Phosphatase 61 U/L Total Protein 6.4 g/dL Albumin 3.4 g/dL Globulin 3.0 Thyroid Stimulating Hormone (TSH) 0.313 mIU/mL Current Medications Medications (Trade) Dose Ordered Sig/Anastasia Route PRN Reason Start Time Stop Time Status Last Admin Dose Admin Methylprednisolone Sodium Succinate (Solu-Medrol) 125 mg STAT STAT IV 05/25/18 21:35 05/25/18 21:36 DC 05/25/18 21:40 Magnesium Sulfate 50 ml @ 50 mls/hr STAT STAT IV 05/25/18 21:37 05/25/18 22:36 DC 05/25/18 21:45 Albuterol/ Ipratropium (Duoneb 0.5 Mg-3 Mg/3 ml Soln) 3 ml STK-MED ONCE IH 05/25/18 22:01 05/25/18 22:03 DC Levalbuterol HCl (Xopenex) 1.25 mg STK-MED ONCE IH 05/25/18 22:01 05/25/18 22:03 DC Levalbuterol HCl (Xopenex) 1.25 mg STAT STAT IH 05/25/18 22:05 05/25/18 22:06 DC 05/25/18 22:11 Albuterol/ Ipratropium (Duoneb 0.5 Mg-3 Mg/3 ml Soln) 3 ml STAT STAT IH 05/25/18 22:05 05/25/18 22:06 DC 05/25/18 22:11 Sodium Chloride 1,000 ml @ 1,200 mls/hr Q50M STAT IV 05/25/18 22:55 05/25/18 23:44 DC 05/25/18 21:45 Methylprednisolone Sodium Succinate (Solu-Medrol) 60 mg Q8HR IV 05/26/18 06:00 05/26/18 14:11 DC 05/26/18 13:53 Albuterol/ Ipratropium (Duoneb 0.5 Mg-3 Mg/3 ml Soln) 3 ml Q4HR IH 05/26/18 00:00 05/26/18 00:00 DC Potassium Chloride/Dextrose/ Sod Cl 1,000 ml @ 100 mls/hr Q10H ONCE IV 05/25/18 23:00 05/26/18 08:59 DC 05/25/18 23:00 Albuterol/ Ipratropium (Duoneb 0.5 Mg-3 Mg/3 ml Soln) 3 ml RTQ4 IH 05/26/18 01:00 06/25/18 00:00 05/27/18 16:24 Sodium Chloride 1,000 ml @ STK-MED ONCE .ROUTE 05/25/18 23:22 05/25/18 23:25 DC Acetaminophen (Tylenol) 1,000 mg Q6HR PRN PO PAIN 1 - 3 05/26/18 08:30 06/25/18 08:29 05/27/18 16:34 Lorazepam (Ativan) 1 mg Q6 PRN IV ANXIETY 05/26/18 08:30 06/25/18 08:29 05/27/18 01:33 Methylprednisolone Sodium Succinate (Solu-Medrol) 80 mg Q6 IV 05/26/18 18:00 06/25/18 17:59 05/27/18 11:56 Ceftriaxone Sodium 1000 mg/ Sodium Chloride 100 ml @ 100 mls/hr Q24HRS IV 05/26/18 14:30 05/26/18 15:14 DC 05/26/18 14:48 Pantoprazole Sodium (Protonix) 40 mg DAILY PO 05/27/18 09:00 06/26/18 08:59 05/27/18 09:23 Ceftriaxone Sodium (Rocephin) 1,000 mg STK-MED ONCE .ROUTE 05/26/18 14:43 05/26/18 14:44 DC Sodium Chloride 100 ml @ ud STK-MED ONCE IV 05/26/18 14:43 05/26/18 14:44 DC Sodium Chloride 1,000 ml @ 70 mls/hr [id number] IV 05/26/18 16:00 06/25/18 15:59 05/27/18 05:34 Ibuprofen (Motrin) 600 mg OT ONCE PO 05/26/18 21:30 05/26/18 21:32 DC 05/26/18 21:34 Ibuprofen (Motrin) 200 mg STK-MED ONCE .ROUTE 05/26/18 21:31 05/26/18 21:32 DC Course Sepsis Screening Results: Posi: NEGATIVE Sepsis Qualifier/Stage: NO DEFINITE RISK Duration or Total Time Spent w: 60 mins Vitals & review Data Vital Sign - Last 24 Hours 05/26/18 05/26/18 05/26/18 05/26/18 16:47 16:48 18:15 19:33 Temp 98.0 98.0 Pulse 85 87 85 95 Resp 18 18 18 20 B/P (MAP) 126/85 (99) Pulse Ox 98 98 98 93 O2 Delivery Nasal Cannula Nasal Canula O2 Flow Rate 2.00 2.50 FiO2 28 05/26/18 05/26/18 05/26/18 05/27/18 20:31 20:39 20:59 00:45 Pulse 84 95 80 Resp 18 20 18 Pulse Ox 97 98 93 O2 Delivery Nasal Cannula O2 Flow Rate 2.50 05/27/18 05/27/18 05/27/18 05/27/18 00:48 01:37 04:11 05:02 Temp 98.3 98.0 98.3 98.0 Pulse 84 84 73 82 Resp 18 17 17 16 B/P (MAP) 115/61 (79) 120/75 (90) Pulse Ox 94 92 96 94 O2 Delivery Nasal Canula Nasal Canula O2 Flow Rate 2.50 2.50 05/27/18 05/27/18 05/27/18 05/27/18 05:09 07:25 07:25 08:27 Temp 98.3 98.3 Pulse 81 80 78 Resp 16 17 16 B/P (MAP) 116/70 (85) Pulse Ox 97 97 98 O2 Delivery Nasal Canula Nasal Cannula O2 Flow Rate 1.00 1.00 05/27/18 05/27/18 05/27/18 05/27/18 08:27 08:31 11:50 12:44 Temp 98.1 98.1 Pulse 78 84 66 85 Resp 16 16 18 18 B/P (MAP) 131/60 (83) Pulse Ox 98 98 97 98 O2 Delivery Nasal Cannula Nasal Canula O2 Flow Rate 2.00 1.00 FiO2 24 05/27/18 05/27/18 05/27/18 05/27/18 12:51 16:24 16:27 16:32 Pulse 83 83 83 81 Resp 16 16 16 16 Pulse Ox 98 96 96 97 O2 Delivery Nasal Cannula O2 Flow Rate 2.00 FiO2 28 Intake and Output 05/26/18 05/26/18 05/27/18 15:00 23:00 07:00 Intake Total 400 ml 250 ml 420 ml Output Total 900 ml 400 ml 1150 ml Balance -500 ml -150 ml -730 ml Laboratory Tests Test 05/25/18 21:45 05/25/18 21:46 05/26/18 02:39 05/26/18 05:52 Blood Gas Sample Site RT BRACIAL ARTERY VBG Blood Gas pH 7.277 Blood Gas PCO2 35.7 mmHg Blood Gas PO2 100.4 mmHg Blood Gas HCO3 16.3 mmol/L Blood Gas Base Excess -9.5 mmol/L Satish Test N/A N/A Arterial Blood Oxygen Saturation 96.4 % Deoxyhemoglobin 3.3 % Carboxyhemoglobin 7.1 % Methemoglobin 0.1 % Total Hemoglobin 15.7 % Total Oxygen Concentration 19.8 % Lactic Acid (Blood Gas) 4.3 MMOL/L 1.4 MMOL/L FiO2 100 % Bicarbonate 17.4 mmol/L White Blood Count 16.3 10^3/uL Red Blood Count 4.81 10^6/uL Hemoglobin 15.2 g/dL Hematocrit 43.2 % Mean Corpuscular Volume 89.8 fL Mean Corpuscular Hemoglobin 31.6 pg Mean Corpuscular Hemoglobin Concent 35.2 g/dL Red Cell Distribution Width 14.3 % Platelet Count 397 10^3/uL Mean Platelet Volume 10.1 fL Neutrophils (%) (Auto) 44.1 % Lymphocytes (%) (Auto) 46.6 % Monocytes (%) (Auto) 7.1 % Neutrophils # (Auto) 7.2 10^3/uL Lymphocytes # (Auto) 7.6 10^3/uL Monocytes # (Auto) 1.2 10^3/uL Absolute Immature Granulocyte (auto 0.07 10^3 u/L Eosinophils % 1.4 % Basophils % 0.4 % Basophils # 0.1 10^3/uL Eosinophil Count 0.2 10^3/uL D-Dimer 0.93 mg/L Sodium Level 136 mmol/L Potassium Level 3.8 mmol/L Chloride Level 101.0 mmol/L Carbon Dioxide Level 20.3 mmol/L Anion Gap 18.5 Blood Urea Nitrogen 14 mg/dL Creatinine 1.19 mg/dL Estimated GFR () 58.3 BUN/Creatinine Ratio 11.0 Glucose Level 176 mg/dL Calcium Level 8.8 mg/dL Total Bilirubin 0.4 mg/dL Aspartate Amino Transf (AST/SGOT) 47 U/L Alanine Aminotransferase (ALT/SGPT) 44 U/L Alkaline Phosphatase 78 U/L Total Creatine Kinase 221 U/L Troponin I 0.06 ng/mL 1.65 ng/mL Pro-B-Type Natriuretic Peptide 71 pg/mL Total Protein 7.5 g/dL Albumin 3.8 g/dL Globulin 3.7 Percent Immature Gran (Cell Imm) 0.40 % Test 05/26/18 11:35 05/26/18 17:10 05/27/18 05:09 Troponin I 2.02 ng/mL 1.59 ng/mL Total Creatine Kinase 411 U/L White Blood Count 18.9 10^3/uL Red Blood Count 4.24 10^6/uL Hemoglobin 13.3 g/dL Hematocrit 38.8 % Mean Corpuscular Volume 91.5 fL Mean Corpuscular Hemoglobin 31.4 pg Mean Corpuscular Hemoglobin Concent 34.3 g/dL Red Cell Distribution Width 14.9 % Platelet Count 297 10^3/uL Mean Platelet Volume 11.0 fL Sodium Level 143 mmol/L Potassium Level 4.2 mmol/L Chloride Level 109.0 mmol/L Carbon Dioxide Level 23.6 mmol/L Anion Gap 14.6 Blood Urea Nitrogen 9 mg/dL Creatinine 0.84 mg/dL Estimated GFR () 87.2 BUN/Creatinine Ratio 10.0 Glucose Level 151 mg/dL Calcium Level 8.5 mg/dL Magnesium Level 2.3 mg/dL Total Bilirubin 0.2 mg/dL Aspartate Amino Transf (AST/SGOT) 26 U/L Alanine Aminotransferase (ALT/SGPT) 24 U/L Alkaline Phosphatase 61 U/L Total Protein 6.4 g/dL Albumin 3.4 g/dL Globulin 3.0 Thyroid Stimulating Hormone (TSH) 0.313 mIU/mL Current Medications Medications (Trade) Dose Ordered Sig/Anastasia PRN Reason Start Time Stop Time Status Last Admin Acetaminophen (Tylenol) 1,000 mg Q6HR PRN PAIN 1 - 3 05/26/18 08:30 06/25/18 08:29 05/27/18 16:34 Albuterol/ Ipratropium (Duoneb 0.5 Mg-3 Mg/3 ml Soln) 3 ml RTQ4 05/26/18 01:00 06/25/18 00:00 05/27/18 16:24 Lorazepam (Ativan) 1 mg Q6 PRN ANXIETY 05/26/18 08:30 06/25/18 08:29 05/27/18 01:33 Methylprednisolone Sodium Succinate (Solu-Medrol) 80 mg Q6 05/26/18 18:00 06/25/18 17:59 05/27/18 11:56 Pantoprazole Sodium (Protonix) 40 mg DAILY 05/27/18 09:00 06/26/18 08:59 05/27/18 09:23 Sodium Chloride 1,000 ml @ 70 mls/hr [id number] 05/26/18 16:00 06/25/18 15:59 05/27/18 05:34 Sepsis Infection Criteria Pres: None LEVEL 1 SEPSIS INFECTION CRITE: Cough/Shortness of Breath LEVEL 2-SIRS (LIST ALL THAT AP: [id number], None/Not assessed Cardiovascular Evidence: Not Assessed or None Hematologic Evidence: None/Not assessed Hepatic Evidence: None/Not assessed Metabolic Evidence: None/Not assessed Neurological Evidence: None/Not assessed Respiratory Evidence: None/Not assessed Renal Evidence: None/Not assessed O2 Sat by Pulse Oximetry: 98 Oxygen Flow Rate: 2.00 Assessment/Plan Assessment/Plan Assessment/Plan 1.) Resp Arrest - Secondary to #2. Much improved. Continue treatment as outlined below. 2.) Asthma Exacerbation - Improved overnight. - Continue corticosteroids but changed to PO as IV access was very difficult.. - Emperic abx. - Duonebs. 3.) Elevated Troponin - May be secondary to chest compressions, however also had a WMA on Echo. - May need C while inpt. - Will consult Dr. Lion in AM. - Continue MARIA G, Beta Zahra and ASA. 4.) Metabolic Acidosis - Much improved. - Continue supportive management. 5.) Nicotine Dependence - Counseled on cessation. - Outpt Wellbutrin and Clonazepam. Plan JOSSIE KRISHNA MD May 28, 2018 08:54
[2018-05-28] MEDS ORDERED: CeleXA PO SCH (09:00)
[2018-05-28] MEDS ORDERED: ZESTRIL PO SCH (09:00)
[2018-05-28] MEDS ORDERED: CITA10TA8 PO (10:14)
[2018-05-28] MEDS ORDERED: Ipratropium/Albuterol Sulfate IH (10:14)
[2018-05-28] MEDS ORDERED: LISI-414 PO (10:14)
[2018-05-28] MEDS ORDERED: CLON0.25 PO (10:14)
[2018-05-28] MEDS ORDERED: METO25TA4 PO (10:14)
[2018-05-28] MEDS ORDERED: AZIT250T14 PO (10:14)
[2018-05-28] MEDS ORDERED: PRED20TA PO (10:14)
[2018-05-28 11:56] VITALS: BP 151/90
[2018-05-28 16:15] VITALS: BP 151/90
--- NOTE | 2018-05-30 16:44 | CNH ---
DATE OF CONSULTATION: 05/27/2018 PRIMARY PHYSICIAN: Dr. Banerjee. CHIEF COMPLAINT: Shortness of breath. HISTORY OF PRESENT ILLNESS: The patient is a 48-year-old white female with underlying history of asthma, came to the Emergency Room after having an episode of acute shortness of breath and apparently she had respiratory failure and CPR was performed, but she was always responsive and when she was brought to the Emergency Room, her vital signs were stable. It is unclear whether she had a respiratory arrest. She does not complain of any chest pain, became acutely short of breath and she is a heavy smoker and they did perform the Heimlich maneuver also. The story is very sketchy and hence consultation seeked to rule out acute coronary disease. ALLERGIES: ASPIRIN, SULFACETAMIDE. PAST MEDICAL AND SURGICAL HISTORY: Hypertension, asthma, general anxiety disorder, osteoarthritis, appendectomy, cholecystectomy, hysterectomy. SOCIAL HISTORY: She has got [id number] history of smoking. No history of any ethanol use. Social alcohol consumption on weekends. FAMILY HISTORY: Mother and father both have had heart trouble and there is a strong family history of heart problems. REVIEW OF SYSTEMS: Revealed periodic episodes of dizziness, lightheadedness, morning cough, periodic shortness of breath, wheezing and requires a rescue inhaler. PHYSICAL EXAMINATION: GENERAL: Alert, awake and oriented. 165 cm, 75 kg, BMI 27.8. VITAL SIGNS: Showed pulse of 70, 130/79 blood pressure with saturation 98% and 97 temperature. HEENT: Unremarkable. NECK: No JVD. No carotid bruits. LUNGS: Showed thick chest wall. Poor air entry bilaterally. No wheezing or rhonchi were noted. She may have underlying COPD. HEART: Sounds S1, S2 normal. ABDOMEN: Truncal obesity, rounded abdomen. No organomegaly. EXTREMITIES: Distal pulses fairly well felt. NEUROLOGIC: No focal neuro deficit is documented. LABORATORY DATA: Showed a white count of 18.9, 13.3 hemoglobin. Chemistry showed an abnormal troponin of 2.02 and she had normal renal function, blood sugar of 131. TSH was 0.313, which was low and her CPK was also elevated at 411. EKG: Regular sinus rhythm with diffuse ST-T wave changes and she had her first EKG with prolonged QT interval of around 510 milliseconds. Second EKG was showing a fairly normal QTc with regular sinus rhythm and nonspecific ST-T wave changes. Echocardiogram showed that the septum was hypokinetic to akinetic and thinning of the septum was noted. Posterior wall contracted with normal ejection fraction was around 45% to 47%. IMPRESSION AND PLAN: Acute dyspnea with CTA showing an exclusion of pulmonary emboli, patchy bilateral hazy opacities, atelectasis versus infiltrate, EKG abnormality, echo abnormality, probably underlying coronary artery disease is a concern with a troponin elevation. In view of the fact that her troponin is elevated significantly and she has wall motion abnormality on the echo, a cardiac catheterization may be advisable and I have strongly recommended the same. Dr. Lion will be back on 06/07/2018. I will be out of town, so the information to be communicated to him to perform a cardiac catheterization to assess for underlying significant coronary artery disease. Thank you very much for this consultation. Lisy Sarkar MD DR: JEFF/savannah JOB# [id number]
--- NOTE | 2018-06-05 08:56 | DSH ---
DATE OF DISCHARGE: 05/28/2018 ADMITTING DIAGNOSES: 1. Shortness of breath. 2. Possible respiratory arrest. 3. Asthma exacerbation. 4. Systemic inflammatory response syndrome. 5. Lactic metabolic acidosis. 6. Leukocytosis. 7. Elevated troponin. 8. Generalized anxiety. DISCHARGE DIAGNOSES: 1. Acute respiratory failure secondary to asthma exacerbation, present on admission. 2. Shortness of breath. 3. Systemic inflammatory response syndrome. 4. Lactic metabolic acidosis. 5. Leukocytosis. 6. Elevated troponin. DISCHARGE MEDICATIONS: See discharge medication reconciliation form. DISCHARGE DISPOSITION: Home. DISCHARGE DIET: Regular. FOLLOWUP: Follow up with PCP within 2 weeks. HOSPITAL COURSE: A 48-year-old female that was [place]. She had been short of breath for approximately one day. Her family performed CPR as they could not tell us she was breathing or not, although she did have a pulse. EMS arrived and the patient was stable, but she was placed on CPAP to assist with oxygenation. Vital signs showed a pulse of 122 on arrival. Respiration rate was 40 and white blood cell count was elevated at 16.3. She was started on IV corticosteroids as well as IV antibiotics and DuoNeb treatments. Over the course of the next 24 hours, her symptoms improved significantly. Her breathing was much improved and she was not having any exertional symptoms. There was no sign of any cardiac abnormality or ectopy noted. Chest x-ray remained clear for pneumonia. Her laboratory evaluation as well as vital signs improved significantly over the next 48 hours. On the date of discharge, she is feeling much better and requesting to go home. She was discharged home on corticosteroids, antibiotics, and instructions to follow up with her PCP within 2 weeks. Ish Banerjee MD DR: THANG/savannah JOB# [id number]
== END 2018-05-28 13:20 | disposition home or self-care (01) | DRG 189 ==
LOC: EDBD 21:25 → ER 21:25 → MS 22:59 → EDPENDDISDT 05-28 10:15 → EDPENDDISTM 05-28 10:15
PROVIDERS: ADMIT Internal Medicine; ATTEND Internal Medicine
PROC: 5A09357 Assistance with Respiratory Ventilation, Less than 24 Consecutive Hours, Continuous Positive Airway Pressure (ICD-10-PCS; principal; 2018-05-25)
PROC: 5A09357 Assistance with Respiratory Ventilation, Less than 24 Consecutive Hours, Continuous Positive Airway Pressure (ICD-10-PCS; 2018-05-26)
DX: J96.01 Acute respiratory failure with hypoxia (principal); J45.901 Unspecified asthma with (acute) exacerbation; R65.10 Systemic inflammatory response syndrome (SIRS) of non-infectious origin without acute organ dysfunction; E87.2 Acidosis; F41.1 Generalized anxiety disorder; I10 Essential (primary) hypertension; M19.90 Unspecified osteoarthritis, unspecified site; F17.210 Nicotine dependence, cigarettes, uncomplicated; Z90.49 Acquired absence of other specified parts of digestive tract; Z90.710 Acquired absence of both cervix and uterus; Z88.2 Allergy status to sulfonamides; Z88.8 Allergy status to other drugs, medicaments and biological substances; Z83.3 Family history of diabetes mellitus; Z82.49 Family history of ischemic heart disease and other diseases of the circulatory system
CPT/HCPCS: 36415; 36600; 71045; 71275; 80053; 82550; 82803; 83605; 83735; 83880; 84443; 84484; 85025; 85027; 85379; 87040; 93005; 93306; 94640; 99291; G0378; J0696; J2060; J2930; J7030; J7050; J7070; J7512; J7620; Q9965; Q0144

== ENCOUNTER 2018-06-12 07:00 | Day surgery (SDC) | payer BC ==
[2018-06-11 10:40] VITALS: BP 130/79
[2018-06-11 11:05] LABS: BASOPHIL # 0.1 10^3/uL (0.0-0.1); BASOPHIL % 0.9 % (0.0-0.2); EOSINOPHIL # 0.2 10^3/uL (0.0-0.2); EOSINOPHIL % 1.7 % (0.0-5.0); HEMOGLOBIN 15.2 g/dL (12.0-15.0); LYMPHOCYTES # 2.4 10^3/uL (1.0-4.8); LYMPHOCYTES % 25.6 % (24.0-44.0); MEAN CELL HGB 31.5 pg (26-34); MEAN CELL HGB CONCENTRATION 35.5 g/dL (33-37); MEAN CORP VOLUME 88.6 fL (78-100); MEAN PLATELET VOLUME 10.1 fL (7.8-11.0); MONOCYTES # 0.7 10^3/uL (0.3-0.8); MONOCYTES % 7.6 % (5.0-12.0); RED CELL DISTRIBUTION WIDTH 14.6 % (11.5-14.5); WHITE BLOOD CELL 9.3 10^3/uL (4.5-11.0)
[2018-06-12] VITALS (21 sets, daily range): BP systolic 102–139; BP diastolic 55–88
[~2018-06-12] VITALS: Ht 157.5 cm; Wt 74.8 kg
[~2018-06-12 07:00] MED LIST: AZIT250T14 PO; CARDENE-NACL 20 MG/200 ML SOLN 200 ML IV ONE; CITA10TA8 PO; CLON0.25 PO; Ipratropium/Albuterol Sulfate IH; LISI-414 PO; LOVENOX SQ ONE; METO25TA4 PO; NITROGLYCERIN 25MG/D5W 250ML 250 ML IV ONE; NS 1000ML 1,000 ML ONE; PRED20TA PO; SUBLIMAZE ONE; VERSED ONE; XYLOCAINE ONE
[2018-06-12] MEDS ORDERED: NS 100ML 100 ML IV ONE (07:36)
[2018-06-12] MEDS ORDERED: VERSED ONE (08:34)
[2018-06-12] MEDS ORDERED: LOVENOX SQ ONE (09:06)
--- NOTE | 2018-06-12 10:05 | CCLR ---
DATE OF PROCEDURE: 06/12/2018 INDICATIONS: A 48-year-old female who recently suffered a severe asthmatic attack, which resulted in respiratory failure and collapse with an in-house echo revealing hypokinesis of her anterior wall. In light of this, left heart catheterization was recommended to rule out underlying coronary disease. PROCEDURES: 1. Left heart catheterization with resting left ventricular hemodynamics. 2. Left ventricular cineangiogram. 3. Selective left and right coronary arteriography. TECHNIQUE: A right percutaneous radial arteriotomy was utilized for vascular access. A 6-Setswana Nasir radial catheter was utilized for coronary injection of the left coronary artery. A Leticia right diagnostic catheter for the right coronary and a 6-Setswana pigtail for the left ventriculogram. PROCEDURE: 1. Left heart catheterization with resting left ventricular hemodynamics. 2. Left ventricular cineangiogram. 3. Selective left and right coronary arteriography. 4. Application of TR band. TECHNIQUE: A right percutaneous radial arteriotomy was utilized for vascular access. Left Ventricular Cineangiography: A pigtail catheter was advanced retrograde across the aortic valve and placed into left ventricle. A 30 mL of contrast were injected at 15 mL per second. Review demonstrated a normal size left ventricle with uniform and symmetrical wall motion without wall motion abnormality with an ejection fraction of 65-70%. Coronary Arteriography: Left coronary artery: Multiple views of the left coronary artery available for review. In order of appearance they: Straight AP, 30-degree DOUGLAS, 30-degree DOUGLAS with 30 degrees of cranial angulation, straight AP with 30 degrees of cranial angulation, 30-degree MEXICAN with 30 degrees cranial angulation, 30-degree MEXICAN, 30-degree MEXICAN with 30 degree cranial angulation, straight AP with 30 degrees of caudal angulation. The left main coronary artery is normal, giving rise to a single LAD and circumflex branch. The LAD/diagonal system was viewed in multiple projections. No flow limiting disease. The circumflex/obtuse marginal system was viewed in multiple projections is seen to be normal. RIGHT CORONARY ARTERY: Two views of the right coronary artery available for review. In order of appearance they: 30-degree DOUGLAS, straight AP with 30 degrees of cranial angulation. The right coronary artery supplies the dominant circulation of the posterior wall and is normal. At this point, the sheath was removed and TR band was applied. FINAL CONCLUSIONS: 1. Normal resting left ventricular hemodynamics with no AO/LV gradient. 2. Left ventricular cineangiography demonstrating normal left ventricular volume, wall motion and ejection fraction of 65-70%. 3. Normal left and right coronary anatomy. 4. Application of TR band. COMMENT: We will counselor aide and reassure the patient and her family regarding these findings and outcomes. RECOMMENDATIONS: We will recommend she return to work on 06/18/2018. Follow up in 1 month in the clinic and I will repeat her echo. Satish Lion MD DR: JUAN/savannah JOB# [id number] DEBORAH
== END 2018-06-12 13:35 | disposition home or self-care (01) ==
LOC: SDC 07:00
PROVIDERS: ATTEND Internal Medicine Cardiovascular Disease
DX: R93.1 Abnormal findings on diagnostic imaging of heart and coronary circulation (principal); I25.10 Atherosclerotic heart disease of native coronary artery without angina pectoris; M16.10 Unilateral primary osteoarthritis, unspecified hip; J45.909 Unspecified asthma, uncomplicated; G43.909 Migraine, unspecified, not intractable, without status migrainosus; F41.9 Anxiety disorder, unspecified; F17.210 Nicotine dependence, cigarettes, uncomplicated; E66.9 Obesity, unspecified; F32.9 Major depressive disorder, single episode, unspecified; Z68.30 Body mass index [BMI] 30.0-30.9, adult; Z79.899 Other long term (current) drug therapy; Z79.2 Long term (current) use of antibiotics; Z87.01 Personal history of pneumonia (recurrent); Z90.710 Acquired absence of both cervix and uterus; Z98.890 Other specified postprocedural states; Z90.49 Acquired absence of other specified parts of digestive tract; Z72.89 Other problems related to lifestyle; Z88.8 Allergy status to other drugs, medicaments and biological substances; Z88.1 Allergy status to other antibiotic agents; Z88.2 Allergy status to sulfonamides; Z83.3 Family history of diabetes mellitus; Z82.49 Family history of ischemic heart disease and other diseases of the circulatory system; Z80.49 Family history of malignant neoplasm of other genital organs
CPT/HCPCS: 36415; 80048; 85025; 85610; 85730; 93458; 99152; 99153; C1769; C1887 ×2; C1894; J1644 ×4; J1650 ×2; J2250 ×2; J3010; J3490; J7030; J7050; Q9967; C1893

== ENCOUNTER → 2018-07-06 | Outpatient (CLI) | payer BC, OTHER ==
[~2018-07-06] MED LIST changes: -CARDENE-NACL 20 MG/200 ML SOLN 200 ML IV ONE; -LOVENOX SQ ONE; -NITROGLYCERIN 25MG/D5W 250ML 250 ML IV ONE; -NS 1000ML 1,000 ML ONE; -SUBLIMAZE ONE; -VERSED ONE; -XYLOCAINE ONE
== END | disposition home or self-care (01) ==
LOC: LAB 19:04
PROVIDERS: ATTEND Nurse Practitioner Family
DX: L03.113 Cellulitis of right upper limb (principal)
CPT/HCPCS: 87070; 87077; 87186

== ENCOUNTER 2018-09-09 15:24 | Emergency (ER) | payer OTHER, BC ==
[~2018-09-09] VITALS: Ht 154.9 cm; Wt 76.2 kg
[2018-09-09 15:51] VITALS: BP 133/69
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
[2018-09-09] MEDS ORDERED: NORCO 10MG PO STA (16:01)
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
[2018-09-09] MEDS ORDERED: NORCO 10MG PO ONE (16:36)
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
[2018-09-09 17:40] VITALS: BP 133/69
== END 2018-09-09 17:23 | disposition home or self-care (01) ==
LOC: ER 15:24
DX: S10.93XA Contusion of unspecified part of neck, initial encounter (principal); S20.229A Contusion of unspecified back wall of thorax, initial encounter; S40.011A Contusion of right shoulder, initial encounter; F17.210 Nicotine dependence, cigarettes, uncomplicated; Z79.899 Other long term (current) drug therapy; Z88.6 Allergy status to analgesic agent; Z90.49 Acquired absence of other specified parts of digestive tract; Z90.710 Acquired absence of both cervix and uterus; V43.62XA Car passenger injured in collision with other type car in traffic accident, initial encounter; Y93.89 Activity, other specified; Y92.89 Other specified places as the place of occurrence of the external cause; Y99.8 Other external cause status
CPT/HCPCS: 72070; 99284; 73000-RT

== ENCOUNTER → 2019-01-21 | Outpatient (CLI) | payer BC ==
--- NOTE | 2019-01-21 12:21 | DIREP ---
PROCEDURE:XRAY HAND MIN 3 VW-RT COMPARISON:None. INDICATIONS:M79.641 PAIN IN RIGHT HAND FINDINGS: BONES:Three views of the right hand. No acute fracture, dislocation, foreign body or erosive arthritis is seen. JOINTS:Normal. SOFT TISSUES:Normal. OTHER:No additional findings. CONCLUSION:No acute findings in the three views of the right hand. Dictated by: Home Wagner MD on 01/21/2019 at 12:19 PM
== END | disposition home or self-care (01) ==
LOC: RAD 11:58
PROVIDERS: ATTEND Nurse Practitioner Adult Health
DX: M79.641 Pain in right hand (principal)
CPT/HCPCS: 73130-RT

== ENCOUNTER → 2019-04-19 | Outpatient (CLI) | payer BC, OTHER ==
[2019-04-19 10:02] LABS: BASOPHIL # 0.1 10^3/uL (0.0-0.1); BASOPHIL % 0.6 % (0.0-0.2); EOSINOPHIL # 0.2 10^3/uL (0.0-0.2); EOSINOPHIL % 1.8 % (0.0-5.0); LYMPHOCYTES # 2.04 10^3/uL1 (1.0-4.8); LYMPHOCYTES % 25.2 % (24.0-44.0); MEAN CORP HGB 31.5 pg (26-34); MONOCYTES # 0.5 10^3/uL (0.3-0.8); MONOCYTES % 6.3 % (5.0-12.0); NEUTROPHIL # 5.4 10^3/uL (1.8-7.7); PLATELET COUNT 268 10^3/uL (150-400); RED CELL DISTRIBUTION WIDTH 12.8 % (11.5-14.5)
[2019-04-19 10:34] LABS: CALCIUM 9.5 mg/dL (8.4-10.5); CARBON DIOXIDE 27.9 mmol/L (20.0-32)
== END | disposition home or self-care (01) ==
LOC: LAB 08:42
PROVIDERS: ATTEND Internal Medicine
DX: J44.9 Chronic obstructive pulmonary disease, unspecified (principal); R53.83 Other fatigue; G44.52 New daily persistent headache (NDPH)
CPT/HCPCS: 36415; 80053; 80061; 83036; 84439; 84443; 85025

== ENCOUNTER 2019-07-05 14:50 | Emergency (ER) | payer OTHER ==
[~2019-07-05] VITALS: Ht 157.5 cm; Wt 76.7 kg
[2019-07-05 16:00] VITALS: BP 170/90
--- NOTE | 2019-07-05 16:00 | NUR ---
ARRIVAL PT ARRIVED AMBULATORY TO ER 6 C/O COUGH, SNEEZING, RUNNY NOSE, LOSS OF TASTE AND SMELL. PT WORKS AT [employer] WHERE THERE IS CURRENTLY A COVID OUTBREAK. PT ARRIVES TO ER FOR COVID TESTING. NO ACUTE DISTRESS NOTED. EDP NOTIFIED OF PT ARRIVAL.
--- NOTE | 2019-07-05 16:04 | NUR ---
COVID SWAB COVID SWAB COLLECTED AT THIS TIME.
[2019-07-05 16:20] VITALS: BP 170/90
--- NOTE | 2019-07-05 16:33 | ER.PDOC ---
General Chief Complaint: Cough/Congestion Stated Complaint: COUGH,BODY ACHES,HEAD ACHES Time seen by MD: 16:33 Source: patient, RN/MD Exam Limitations: no limitations History of Present Illness Initial Comments Pt states she works at a [employer] and today pt is complaining of nausea, sore throat, mild headache, unknown fever, mild cough + exposure to Covid 19 Severity: mild Associated Symptoms: runny nose Worsen By: deep breathing Prior symptoms/Treatment: Similar symptoms previous Allergies: Coded Allergies: sulfacetamide sodium (Verified Allergy, Intermediate, Rash, 06/11/18) aspirin (Verified Allergy, Unknown, 06/11/18) NOSE BLEEDS Home Meds Active Scripts Clonazepam (CLONAZEPAM) 0.25 Mg Tab.rapdis, 0.25 MG PO BID for 30 Days, #60 Prov:JOSSIE KRISHNA MD 05/28/18 Citalopram Hydrobromide (CELEXA) 10 Mg Tablet, 10 MG PO DAILY for 30 Days, #30 TABLET Prov:JOSSIE KRISHNA MD 05/28/18 Metoprolol Tartrate 25MG (LOPRESSER 25MG) 25 Mg Tablet, 12.5 MG PO BID for 30 Days, #60 TABLET Prov:JOSSIE KRISHNA MD 05/28/18 Lisinopril (LISINOPRIL) 5 Mg Tablet, 5 MG PO DAILY for 30 Days, #30 TABLET Prov:JOSSIE KRISHNA MD 05/28/18 [Ipratropium/Albuterol Sulfate] 3 ML AMPUL.NEB No Conflict Check, 3 ML IH RTQ4 for 10 Days, #30 INHALATION 1 Refill Prov:JOSSIE KRISHNA MD 05/28/18 Constitutional: fever EENTM: nose congestion Respiratory: cough Cardiovascular: no symptoms reported Gastrointestinal: no symptoms reported Genitourinary: no symptoms reported Musculoskeletal: no symptoms reported Skin: no symptoms reported Psychiatric/Neurological: no symptoms reported Endocrine: no symptoms reported Hematologic/Lymphatic: no symptoms reported Past Medical History Medical History: asthma, COPD, heart attack, hypertension Surgical History: cardiac cath, cholecystectomy, hysterectomy Family History Significant Family History: no pertinent family hx Social History Smoking: non-smoker Alcohol Use: none Drug Use: none Reviewed Nursing Reviewed: Vital Signs, Abn. Noted, Nursing Assessment Physical Exam General Appearance: alert, no distress Eye: eyes nml inspection, lids & conjunct. 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 Departure Time of Disposition: 17:43 Disposition: 01 HOME, SELF-CARE Impression: Primary Impression: Upper respiratory infection Additional Impressions: Cough Exposure to COVID-19 virus Condition: Stable Patient Instructions: Chronic Asthmatic Bronchitis, Cough, Adult, [id number], Upper Respiratory Infection, Adult, [id number] Referrals: JOSSIE KRISHNA MD (PCP) PRIMARY CARE PROVIDER Additional Instructions: Return if symptoms worsen. See PCP as needed. Stay home and quarantine until cleared by health dept Duration or Time Spent with Pa: 15 minutes Return to Work/School Can a patient return to work?: No Can a patient return to school: No Problem Qualifiers Primary Impression: Upper respiratory infection URI type: unspecified viral URI Qualified Codes: J06.9 - Acute upper resp iratory infection, unspecified ELISABET BUCKLEY DO July 05, 2019 16:33 YESENIA CAVANAUGH NP July 05, 2019 16:57
--- NOTE | 2019-07-05 17:20 | DIREP ---
PROCEDURE:CHEST 2 VIEWS COMPARISON:[facility], CR, XRAY CHEST SINGLE VW, 05/27/2018, 12:35 PM. [facility], CR, XRAY CHEST SINGLE VW, 05/25/2018, 09:51 PM. INDICATIONS:coughing + Covid 19 FINDINGS: LUNGS/PLEURA:No confluent pulmonary infiltrate. No effusions. No pneumothorax. VASCULATURE:Unremarkable pulmonary vasculature. CARDIAC:No cardiac silhouette abnormality or cardiomegaly. MEDIASTINUM:No visible mass or adenopathy. BONES:No fracture or visible bony lesion. OTHER:Negative. CONCLUSION: 1. No confluent pulmonary infiltrate. Dictated by: Shanna Hooper MD on 07/05/2019 at 05:15 PM
== END 2019-07-05 17:50 | disposition home or self-care (01) ==
LOC: ER 14:50
DX: U07.1 COVID-19 (principal); J45.909 Unspecified asthma, uncomplicated; I10 Essential (primary) hypertension; J44.9 Chronic obstructive pulmonary disease, unspecified; Z79.51 Long term (current) use of inhaled steroids; Z90.710 Acquired absence of both cervix and uterus; I25.2 Old myocardial infarction; Z90.49 Acquired absence of other specified parts of digestive tract; Z88.6 Allergy status to analgesic agent; Z88.8 Allergy status to other drugs, medicaments and biological substances; Z79.899 Other long term (current) drug therapy
CPT/HCPCS: 36415; 71046; 87070; 87635; 87804; 87880; 99284

== ENCOUNTER → 2020-03-16 | Outpatient (CLI) | payer OTHER ==
--- NOTE | 2020-03-16 13:57 | DIREP ---
PROCEDURE:XRAY SHOULDER MIN 2 VWS-RT COMPARISON:[facility], , XRAY CLAVICLE-RT, 09/09/2018, 04:24 PM. INDICATIONS:PAIN IN RIGHT SHOULDER FINDINGS: BONES:Normal. JOINTS:Normal glenohumeral and acromioclavicular joints. No evidence for dislocation. SOFT TISSUES:Normal. OTHER:Normal. CONCLUSION:Normal examination. Dictated by: David Alvarez M.D. on 03/16/2020 at 01:55 PM
--- NOTE | 2020-03-16 14:20 | DIREP ---
PROCEDURE:CHEST 2 VIEWS COMPARISON:[facility], CR, XRAY CHEST 2 VWS, 07/05/2019, 04:54 PM. [facility], CT, CTA CHEST, 05/26/2018, 03:33 PM. INDICATIONS:PAIN IN RIGHT SHOULDER FINDINGS: LUNGS/PLEURA:No significant pulmonary parenchymal abnormalities. No effusions. VASCULATURE:Normal. Unremarkable pulmonary vasculature. CARDIAC:Normal. No cardiac silhouette abnormality or cardiomegaly. MEDIASTINUM:Normal. No visible mass or adenopathy. BONES:Normal. No fracture or visible bony lesion. OTHER:Negative. CONCLUSION:Normal examination. There is no significant change as compared with the previous examination. Dictated by: Gerald Lawson M.D. on 03/16/2020 at 02:17 PM
== END | disposition home or self-care (01) ==
LOC: RAD 11:36
PROVIDERS: ATTEND Internal Medicine
DX: M25.511 Pain in right shoulder (principal); M25.519 Pain in unspecified shoulder
CPT/HCPCS: 71046; 73030-RT

== ENCOUNTER → 2020-04-09 | Outpatient (CLI) | payer OTHER ==
[~2020-04-09] MED LIST changes: -LISI-414 PO; +LISI-593 PO
--- NOTE | 2020-04-09 11:19 | DIREP ---
PROCEDURE:Digital Screening Mammogram TECHNIQUE:MLO and CC digital images of each breast are provided. Computer Assisted Detection (CAD) was utilized. COMPARISON:[facility], DIGITAL MAMMO UNILAT DIAGNOSTIC LT, 04/30/2012, 12:43 PM. [facility], DIGITAL MAMMO SCREENING, 04/13/2012, 11:01 AM. [facility], MAMMO BILATERAL SCREENING, 07/22/2014, 10:55 AM. INDICATIONS:SCREENING BREAST COMPOSITION:Almost entirely fatty. FINDINGS:There are no grouped microcalcifications, masses, or architectural distortions to suggest malignancy. There is no significant change as compared with the previous examination(s). IMPRESSION:No mammographic evidence of malignancy. RECOMMENDATIONS:Routine Screening Mammography per [employer] guidelines. OVERALL FINAL ASSESSMENT:BI-RADS 1 - Negative Mammogram Note: This facility participates in a mammography screening patient reminder system. Dictated by: Jose Elias Mario MD on 04/09/2020 at 11:16 AM
== END | disposition home or self-care (01) ==
LOC: RAD 09:52
PROVIDERS: ATTEND Internal Medicine
DX: Z12.31 Encounter for screening mammogram for malignant neoplasm of breast (principal); N64.89 Other specified disorders of breast
CPT/HCPCS: 77067

== ENCOUNTER 2020-04-20 06:31 | Day surgery (SDC) | payer OTHER ==
[2020-04-17 09:55] VITALS: BP 151/81
--- NOTE | 2020-04-17 10:19 | PCM.EKG ---
[facility] Test Date: 2020-04-17 Test Time: 11:10:55 Pat Name: JORGE HERNANDEZ Department: Room: Gender: F Dental Secretary: ALICIA : 1970 Requested By: ELIZABETH BARBER Order Number: [id number] Reading MD: Measurements Intervals [place] Rate: 64 P: 72 LA: 126 QRS: 81 QRSD: 78 T: 51 QT: 406 QTc: 418 Interpretive Statements Normal sinus rhythm Compared to ECG 05/27/2018 11:15:49 Sinus arrhythmia no longer present T-wave abnormality no longer present Possible ischemia no longer present Please click the below link to view image of tracing.
[2020-04-17 10:22] LABS: BASOPHIL % 0.6 % (0.0-0.2); EOSINOPHIL # 0.1 10^3/uL (0.0-0.2); EOSINOPHIL % 1.6 % (0.0-5.0); LYMPHOCYTES # 2.33 10^3/uL1 (1.0-4.8); LYMPHOCYTES % 33.5 % (24.0-44.0); MEAN CORP HGB 32.4 pg (26-34); MONOCYTES # 0.4 10^3/uL (0.3-0.8); MONOCYTES % 5.7 % (5.0-12.0); NEUTROPHIL # 4.1 10^3/uL (1.8-7.7); NEUTROPHILS % 58.2 % (41.0-85.0); PLATELET COUNT 268 10^3/uL (150-400); RED CELL DISTRIBUTION WIDTH 12.9 % (11.5-14.5)
[2020-04-17 10:47] LABS: CALCIUM 8.7 mg/dL (8.4-10.5); CARBON DIOXIDE 26.4 mmol/L (20.0-32)
[~2020-04-20] VITALS: Ht 157.5 cm; Wt 80.7 kg
[~2020-04-20 06:31] MED LIST changes: +ALBU8.5H7 IH; +BUDE10.2 IH; +LACTATED RINGERS 1,000 ML IV SCH; +LACTATED RINGERS 1,000 ML ONE; +MOVIPREP POWDER PACKET PO STA; +VENL150C PO
[2020-04-20 07:00] VITALS: BP 118/75
[2020-04-20] MEDS ORDERED: WATER ONE (07:32)
[2020-04-20] MEDS ORDERED: LIDOCAINE 2% VIAL ONE (07:36)
[2020-04-20] MEDS ORDERED: DIPRIVAN IV ONE ×2 (07:37→09:22)
[2020-04-20 09:10] VITALS: BP 106/78
[2020-04-20] MEDS ORDERED: VENTOLIN IH ONE ×2 (09:13→09:30)
--- NOTE | 2020-04-20 09:21 | PRM.OPH ---
Immediate Post Op Report Immediate Post Op Report Imediate Post Op Report Preop diagnosis Screening colonoscopy Postoperative diagnosis Same Sigmoid polyp 25 cm Procedure Colonoscopy to cecum Surgeon Dr. Macedo Anesthesia Monitored anesthesia EBL Less than 10 mls Specimen Sigmoid mass at 25 cm Complications None DALTON MACEDO MD Apr 20, 2020 09:21
[2020-04-20] MEDS ORDERED: VERSED ONE (09:22)
[2020-04-20 09:25] VITALS: BP 123/62
--- NOTE | 2020-04-20 09:26 | PRM.OPH ---
OPERATIVE REPORT OPERATIVE REPORT Patient was initially seen and identified in the preoperative area. After confirming her identity, H&P, consents patient was transferred from the preop area to the endoscopy suite. The patient was hooked up to appropriate anesthesia monitoring and then placed into a left lateral decubitus position. Patient was then given propofol sedation by anesthesia. Once patient was appropriately sedated and on the okay was given by anesthesia the procedure began. Digital rectal exam was performed no masses were noted. The scope was then inserted into the rectum and the rectum and colon were then insufflated. The overall prep was good although there was a fair amount of retained bowel prep. Her colon was extremely tortuous requiring manipulation of the patient from a left lateral decubitus position to supine back to left lateral decubitus position. We are able with some difficulty to get all the way down to the cecum. Pictures of the ileocecal valve and the appendiceal orifice were taken. A slow withdrawal of the scope greater than 7 minutes was then performed. Cleaning up any retained mucus or bowel prep which was encountered. The scope was withdrawn from the cecum through the ascending colon through the transverse colon through the descending colon back into the sigmoid colon where we came across a either flat polyp or an overgrowth of the lining which was then biopsied with cold biopsy forceps. There is no evidence of active ongoing bleeding after removing the area. This was at 25 cm. The scope was then continue to be withdrawn back into the rectum. Scope was then placed into retroflexion view to allow the examination of the hemorrhoidal tissue. This was considered normal. Scope was taken out of retroflexion view the rest of the remaining air from the rectum and as much from the colon as could be removed was removed and the scope was then withdrawn from the patient. The patient was handed back over to anesthesia to be awoken from monitored anesthesia to be cleaned up by nursing and then to be escorted back to the PACU for further recovery. Overall the patient has tolerated the procedure well. The patient will follow up in the next 7 to 10 days for the results of the biopsy. DALTON BAUTISTA MD Apr 20, 2020 09:26
[2020-04-20 09:40] VITALS: BP 120/63
[2020-04-20 09:55] VITALS: BP 113/64
[2020-04-20 10:10] VITALS: BP 118/75
== END 2020-04-20 10:30 | disposition home or self-care (01) ==
LOC: SDC 06:31
PROVIDERS: ATTEND Surgery
DX: Z12.11 Encounter for screening for malignant neoplasm of colon (principal); K63.89 Other specified diseases of intestine; K63.5 Polyp of colon; I25.2 Old myocardial infarction; E66.3 Overweight; J45.909 Unspecified asthma, uncomplicated; F17.200 Nicotine dependence, unspecified, uncomplicated; F41.9 Anxiety disorder, unspecified; G43.909 Migraine, unspecified, not intractable, without status migrainosus; F32.9 Major depressive disorder, single episode, unspecified; M19.90 Unspecified osteoarthritis, unspecified site; Z72.89 Other problems related to lifestyle; Z90.49 Acquired absence of other specified parts of digestive tract; Z90.710 Acquired absence of both cervix and uterus; Z98.890 Other specified postprocedural states; Z79.899 Other long term (current) drug therapy; Z87.01 Personal history of pneumonia (recurrent); Z85.41 Personal history of malignant neoplasm of cervix uteri; Z98.1 Arthrodesis status; Z90.89 Acquired absence of other organs; Z88.2 Allergy status to sulfonamides; Z88.8 Allergy status to other drugs, medicaments and biological substances; Z91.041 Radiographic dye allergy status; Z68.30 Body mass index [BMI] 30.0-30.9, adult
CPT/HCPCS: 36415; 45380; 80053; 85025; 85610; 85730; 88305; 93005; 94640; J2001; J2250; J3490 ×2; J7120; J7613

== ENCOUNTER → 2020-12-17 | Outpatient (CLI) | payer OTHER ==
[~2020-12-17] MED LIST changes: -LACTATED RINGERS 1,000 ML IV SCH; -LACTATED RINGERS 1,000 ML ONE; -MOVIPREP POWDER PACKET PO STA
--- NOTE | 2020-12-17 11:07 | DIREP ---
PROCEDURE:XR SPINE CERVICAL 2 OR 3 VIEWS COMPARISON:None. INDICATIONS:M54.12 RADICULOPATHY CERVICAL REGION FINDINGS: ALIGNMENT:Normal. VERTEBRAE:Mild anterior osteophyte formation C5-6. DISK SPACES:Minimal narrowing C5-6 disc space. CERVICAL RIBS:None. OTHER:Normal. CONCLUSION:Mild degenerative changes C5-6. No acute abnormalities. Dictated by: Umang Zamudio M.D. on 12/17/2020 at 11:05 AM
== END | disposition home or self-care (01) ==
LOC: RAD 09:47
PROVIDERS: ATTEND Internal Medicine
DX: M47.22 Other spondylosis with radiculopathy, cervical region (principal); M25.78 Osteophyte, vertebrae; M48.02 Spinal stenosis, cervical region
CPT/HCPCS: 72040

== ENCOUNTER 2021-07-19 21:15 | Emergency (ER) | payer BC, OTHER ==
[~2021-07-19] VITALS: Ht 165.1 cm; Wt 81.6 kg
[2021-07-19 21:15] VITALS: BP 152/91
[~2021-07-19 21:15] MED LIST changes: -LISI-593 PO; +LISI5TAB18 PO; -VENL150C PO; +VENL150C3 PO
--- NOTE | 2021-07-19 22:25 | DIREP ---
PROCEDURE:CHEST 1 VIEW COMPARISON:[facility], CR, XRAY CHEST 2 VWS, 03/16/2020, 11:43 AM. [facility], CR, XRAY CHEST 2 VWS, 07/05/2019, 04:54 PM. INDICATIONS:sob FINDINGS: LUNGS/PLEURA:No significant pulmonary parenchymal abnormalities. No effusions. VASCULATURE:Normal. Unremarkable pulmonary vasculature. CARDIAC:Normal. No cardiac silhouette abnormality or cardiomegaly. MEDIASTINUM:Normal. No visible mass or adenopathy. BONES:Normal. No fracture or visible bony lesion. OTHER:There are surgical clips present in the right upper quadrant compatible with prior cholecystectomy. CONCLUSION:No acute cardiopulmonary abnormality or significant interval change. Dictated by: Ish Cornelius M.D. on 07/19/2021 at 10:23 PM
[2021-07-19] MEDS ORDERED: DUO 0.5-3(2.5) MG/3 ML IH ONE (23:20)
[2021-07-19 23:29] LABS: BASOPHIL % 0.4 % (0.0-0.2); EOSINOPHIL # 0.1 10^3/uL (0.0-0.2); EOSINOPHIL % 0.5 % (0.0-5.0); LYMPHOCYTES # 2.62 10^3/uL1 (1.0-4.8); LYMPHOCYTES % 25.2 % (24.0-44.0); MEAN CORP HGB 31.1 pg (26-34); MONOCYTES # 0.7 10^3/uL (0.3-0.8); MONOCYTES % 6.7 % (5.0-12.0); PLATELET COUNT 330 10^3/uL (150-400); RED CELL DISTRIBUTION WIDTH 13.1 % (11.5-14.5)
[2021-07-19] MEDS: DUO 0.5-3(2.5) MG/3 ML IH STA (23:31)
--- NOTE | 2021-07-19 23:32 | PCM.EKG ---
[facility] Test Date: 2021-07-19 Test Time: 23:26:55 Pat Name: JORGE HERNANDEZ Department: Patient ID: [facility]-[id number] Room: Gender: F Sound Person: AYANA : 1970 Requested By: BAKARI THOMAS Order Number: [id number] Reading MD: Measurements Intervals [place] Rate: 81 P: 66 MO: 140 QRS: 55 QRSD: 98 T: 52 QT: 398 QTc: 462 Interpretive Statements Sinus rhythm Baseline wander in lead(s) V1,V2,V3,V5,V6 Compared to ECG 04/17/2020 11:10:55 No significant changes Please click the below link to view image of tracing.
[2021-07-19 23:56] LABS: CARBON DIOXIDE 27.9 mmol/L (20.0-32)
--- NOTE | 2021-07-20 00:11 | ER.PDOC ---
General Chief Complaint: Dyspnea/Respdistress Stated Complaint: SOB TRAVEL OUT OF US: No Time seen by MD: 22:00 Source: patient Exam Limitations: no limitations History of Present Illness Initial Comments 51-year-old female comes here with many complaints which include headache and dizziness and shortness of breath and feeling anxious. The symptoms started this morning. She is very concerned because it lasted all day. No fever and no chills. She did not take any medical medication for this at home. No vomiting. No diarrhea. Allergies: Coded Allergies: sulfacetamide sodium (Verified Allergy, Intermediate, RASH,HIVES,WHELPS, 04/17/20) aspirin (Verified Adverse Reaction, Unknown, 04/17/20) NOSE BLEEDS Home Meds Active Scripts Clonazepam (CLONAZEPAM) 0.25 Mg Tab.rapdis, 0.25 MG PO BID for 30 Days, #60 Prov:JOSSIE KRISHNA MD 05/28/18 Citalopram Hydrobromide (CELEXA) 10 Mg Tablet, 10 MG PO DAILY for 30 Days, #30 TABLET Prov:JOSSIE KRISHNA MD 05/28/18 Metoprolol Tartrate 25MG (LOPRESSER 25MG) 25 Mg Tablet, 12.5 MG PO BID for 30 Days, #60 TABLET Prov:JOSSIE KRISHNA MD 05/28/18 Lisinopril (LISINOPRIL) 5 Mg Tablet, 5 MG PO DAILY for 30 Days, #30 TABLET Prov:JOSSIE KRISHNA MD 05/28/18 Reported Medications Budesonide/Formoterol Fumarate (SYMBICORT 160-4.5 MCG INHALER) 10.2 Gm Hfa.aer.ad, 2 PUFF IH BID, #10.6 GRAM 3 Refills 04/17/20 Albuterol Sulfate (PROAIR HFA) 8.5 Gm Hfa.aer.ad, 8.5 GM IH Q4 PRN for SHORTNESS OF BREATH, INHALATION 04/17/20 Venlafaxine Hcl (EFFEXOR XR) 150 Mg Cap.er.24h, 2 CAP PO DAILY, #30 CAP 1 Refill 04/17/20 Past Medical History Medical History: asthma, COPD, hypertension, other (Anxiety) Surgical History: cholecystectomy, hysterectomy LMP (females 10-50): N/A Not applicalbe Social History Smoking: less than 1 pack/day Alcohol Use: occassionally Drug Use: none Reviewed Nursing Reviewed: Vital Signs, Abn. Noted, Nursing Assessment Review of Systems Constitutional: denies no symptoms reported, denies see HPI, denies chills, denies diaphoresis, denies fever, denies malaise, denies weakness, denies other EENTM: denies no symptoms reported, denies see HPI, denies eye pain, denies blurred vision, denies tearing, denies double vision, denies ear pain, denies ear discharge, denies nose pain, denies nose congestion, denies throat pain, denies throat swelling, denies mouth pain, denies mouth swelling, denies other Respiratory: denies no symptoms reported, denies see HPI, denies cough, denies orthopnea; shortness of breath; denies stridor, denies wheezing, denies other Cardiovascular: denies no symptoms reported, denies see HPI, denies chest pain, denies edema, denies palpitations, denies syncope, denies other Gastrointestinal: denies no symptoms reported, denies see HPI, denies abdominal pain, denies constipation, denies diarrhea, denies nausea, denies vomiting, denies other Genitourinary: denies no symptoms reported, denies see HPI, denies discharge, denies dysuria, denies frequency, denies hematuria, denies pain, denies other Musculoskeletal: denies no symptoms reported, denies see HPI, denies back pain, denies gout, denies joint pain, denies joint swelling, denies muscle pain, denies muscle stiffness, denies neck pain, denies other Skin: denies no symptoms reported, denies see HPI, denies change in color, denies change in hair/nails, denies dryness, denies lesions, denies lumps, denies rash, denies other Psychiatric/Neurological: denies no symptoms reported, denies see HPI; anxiety; denies depressed, denies emotional problems; headache; denies numbness, denies paresthesia, denies pre-existing deficit, denies seizure, denies tingling, denies tremors, denies weakness, denies other Hematologic/Lymphatic: denies no symptoms reported, denies see HPI, denies anemia, denies blood clots, denies easy bleeding, denies easy bruising, denies swollen glands, denies other Immunological/Allergic: denies no symptoms reported, denies see HPI, denies food allergy, denies grass allergy, denies mold allergy, denies pollen allergy, denies HIV/AIDS, denies transplant All Other Systems: Reviewed and Negative Physical Exam General Appearance: No Apparent Distress, WD/WN, Anxious EENT: eyes nml inspection, nml ENT inspection Neck: Non-Tender, Full Range of Motion, Supple, Normal Inspection Respiratory: chest non-tender, lungs clear, normal breath sounds, no respiratory distress, no accessory muscle use CVS: reg rate & rhythm, no murmur, no gallop, pulses nml, nml capillary refill Gastrointestinal: Normal Bowel Sounds, No Organomegaly, No Pulsatile Mass, Soft Back: Normal Inspection, No CVA Tenderness Extremities: Normal Range of Motion, Non-Tender, Normal Inspection, No Pedal Edema, Swelling Neurologic/Psychiatric: virtual recruiter II-XII NML as Tested, No Motor/Sensory Deficits, Alert, Normal Mood/Affect, Oriented x 3 Skin: Normal Color Lymphatic: No Adenopathy (We will disease of moderate work-up) Results/Orders Results/Orders Orders - BAKARI THOMAS MD Cbc With Auto Diff (07/19/21 22:10) Comprehensive Metabolic Panel (07/19/21 22:10) Probnp B-Type Filler Spreader (07/19/21 22:10) D-Dimer (07/19/21 22:10) PT (07/19/21 22:10) Partial Thromboplastin Time. (07/19/21 22:10) Ekg-Routine (07/19/21 22:10) Xr Chest 1v (07/19/21 22:10) Troponin I High Sensitivity (07/19/21 22:10) Strep Screen (07/19/21 22:10) Covid19 Antigen Fernanda Lana (07/19/21 22:10) Ipratropium/Albuterol Sulfate (Duo 0.5-3 (07/19/21 22:10) Urinalysis (07/19/21 22:10) Ipratropium/Albuterol Sulfate (Duo 0.5-3 (07/19/21 23:20) Vital Signs Date Time Temp Pulse Resp B/P (MAP) Pulse Ox O2 Delivery O2 Flow Rate FiO2 5/23/22 21:15 98.3 79 20 98 07/19/21 21:15 98.3 79 20 07/19/21 21:15 98.3 79 20 152/91 (111) 98 Room Air* 0 21 Administered Medications Medications (Trade) Dose Ordered Sig/Anastasia Route PRN Reason Start Time Stop Time Status Last Admin Dose Admin Albuterol/ Ipratropium (Duo 0.5-3(2.5) Mg/3 ml) 3 ml STAT STAT IH 07/19/21 22:10 07/19/21 22:12 DC 07/19/21 23:31 3 ML Laboratory Tests Test 07/19/21 23:15 07/19/21 23:23 White Blood Count 10.4 10^3/uL (4.5-11.0) Red Blood Count 5.56 10^6/uL (4.00-5.20) H Hemoglobin 17.3 g/dL (12.0-15.0) H Hematocrit 53.9 % (36.0-46.0) H Mean Corpuscular Volume 96.9 fL (78-100) Mean Corpuscular Hemoglobin 31.1 pg (26-34) Mean Corpuscular Hemoglobin Concent 32.1 g/dL (33-36.5) L Red Cell Distribution Width 13.1 % (11.5-14.5) Platelet Count 330 10^3/uL (150-400) Mean Platelet Volume 9.9 fL (7.8-11.0) Neutrophils (%) (Auto) 67.0 % (41.0-85.0) Lymphocytes (%) (Auto) 25.2 % (24.0-44.0) Monocytes (%) (Auto) 6.7 % (5.0-12.0) Neutrophils # (Auto) 7.0 10^3/uL (1.8-7.7) Lymphocytes # (Auto) 2.62 10^3/uL1 (1.0-4.8) Monocytes # (Auto) 0.7 10^3/uL (0.3-0.8) Absolute Immature Granulocyte (auto 0.02 10^3 u/L (0-2) Absolute Eosinophils (auto) 0.1 10^3/uL (0.0-0.2) Immature Granulocytes % 0.20 % (0.00-0.50) Eosinophils % 0.5 % (0.0-5.0) Basophils % 0.4 % (0.0-0.2) H Basophils # 0.0 10^3/uL (0.0-0.1) Prothrombin Time 9.9 SEC (9.1-11.5) Prothrombin Time INR (Non-Therap) 1.0 Activated Partial Thromboplast Time 25.4 SEC (22.5-33.1) D-Dimer 0.48 mg/L (0.19-0.49) Sodium Level 140 mmol/L (132-145) Potassium Level 3.7 mmol/L (3.6-5.2) Chloride Level 104.0 mmol/L (96-109) Carbon Dioxide Level 27.9 mmol/L (20.0-32) Anion Gap 11.8 Blood Urea Nitrogen 10 mg/dL (7-18) Creatinine 1.08 mg/dL (0.59-1.40) Estimated GFR () 64.5 (>/=60) Est GFR (CKD-EPI)(Non-Afr [place]) 53.3 (>/=60) BUN/Creatinine Ratio 9.0 Glucose Level 114 mg/dL (70-110) H Calcium Level 10.0 mg/dL (8.4-10.5) Total Bilirubin 0.5 mg/dL (0.2-1.0) Aspartate Amino Transferase (AST) 19 U/L (0-35) Alanine Aminotransferase (ALT) 34 U/L (12-78) Alkaline Phosphatase 104 U/L (50-136) Troponin I High Sensitivity 5 ng/L (0-50) Pro-B-Type Natriuretic Peptide 160 pg/mL (0-125) H Total Protein 8.2 g/dL (6.4-8.2) Albumin 4.3 g/dL (3.4-5.0) Globulin 3.9 Albumin/Globulin Ratio 1.102 SARS-CoV-2 Antigen (Rapid) NEGATIVE (NEGATIVE) Group A Streptococcus Screen NEGATIVE (NEGATIVE) Progress Progress Patient here with normal vital signs. Chest x-ray is normal. EKG is normal. Labs are normal. At this point I do not see any indication for any further work-up. Will discharge home. Physical exam is unremarkable. ER DEPART Departure Time of Disposition: 00:09 Disposition: 01 HOME / SELF CARE / HOMELESS Impression: Primary Impression: Anxiety state Additional Impressions: Dyspnea Dizziness Condition: Stable Referrals: JOSSIE KRISHNA MD (PCP) PRIMARY CARE PROVIDER Additional Instructions: Follow-up with your doctor in the morning Return to hospital if any symptoms develop Duration or Time Spent with Pa: 30 min Problem Qualifiers BAKARI THOMAS MD July 20, 2021 00:11
[2021-07-20 00:25] VITALS: BP 146/76
== END 2021-07-20 00:33 | disposition home or self-care (01) ==
LOC: EDUNIT# 21:15 → ER 21:15 → EDBD 21:15 → ER 07-20 00:33
DX: F41.1 Generalized anxiety disorder (principal); R06.00 Dyspnea, unspecified; R42 Dizziness and giddiness; F10.20 Alcohol dependence, uncomplicated; F17.210 Nicotine dependence, cigarettes, uncomplicated; I10 Essential (primary) hypertension; J44.9 Chronic obstructive pulmonary disease, unspecified; Z88.6 Allergy status to analgesic agent; Z90.49 Acquired absence of other specified parts of digestive tract; Z90.710 Acquired absence of both cervix and uterus; Z20.822 Contact with and (suspected) exposure to COVID-19
CPT/HCPCS: 71045; 80053; 83880; 84484; 85025; 85379; 85610; 85730; 87070; 87426; 87880; 93005; 94640; 99284

== ENCOUNTER → 2021-08-03 | Outpatient (CLI) | payer BC ==
--- NOTE | 2021-08-03 18:05 | DIREP ---
PROCEDURE:XRAY SPINE LUMBAR 2-3 VWS COMPARISON:None. 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 VERTEBRAE:Normal. DISK SPACES:Mild disc space narrowing at L5-S1. Mild ventral osteophytosis of the mid lumbar spine. SPONDYLOLISTHESIS:None. SACROILIAC JOINTS:Normal. OTHER:Cholecystectomy clips. Aortic calcifications. CONCLUSION: Mild degenerative changes of the lumbar spine. Dictated by: Aniceto Blackmon MD on 08/03/2021 at 06:03 PM
--- NOTE | 2021-08-03 18:06 | DIREP ---
PROCEDURE:XRAY FOOT MIN 3 VWS-RT COMPARISON:None. INDICATIONS:M79.671 PAIN IN RIGHT FOOT FINDINGS: BONES:Normal. JOINTS:Normal. SOFT TISSUES:Normal. OTHER:No additional findings. CONCLUSION: Unremarkable radiographic appearance of the right foot. Dictated by: Aniceto Blackmon MD on 08/03/2021 at 06:03 PM
== END | disposition home or self-care (01) ==
LOC: LAB 15:59
PROVIDERS: ATTEND Internal Medicine
DX: M47.817 Spondylosis without myelopathy or radiculopathy, lumbosacral region (principal); I70.0 Atherosclerosis of aorta
CPT/HCPCS: 72100; 73630-RT